=== PATIENT | male | born 1960 | race Caucasian/White ===

== ENCOUNTER 2020-05-14 10:03 | Observation (INO) | payer OTHER ==
--- NOTE | 2020-05-14 11:50 | RAD REPORT ---
EXAM DESCRIPTION: CT - CTHCSPWOC - 05/14/2020 11:08 am CLINICAL HISTORY: fall/syncope, head and neck injury COMPARISON: No comparisons TECHNIQUE: Axial 5 mm thick images of the head were obtained. Axial 2 mm thick images of the cervic al spine were obtained with sagittal and coronal reconstruction images generated and reviewed. All CT scans are performed using dose optimization technique as appropriate and may include automated exposure control or mA/KV adjustment according to patient size. FINDINGS: No intracranial hemorrhage, mass, edema or acute intracranial finding. No suspicion for ac genie infarction. No extra-axial fluid collections. Mastoid air cells and paranasal sinuses are clear. No globe or orbit abnormality seen. Cervical bodies are normal in height. No subluxation abnormality. Straightening of the usual cervical lordosis could be from muscle spasm or positioning artifact with the examination. Minimal C5-6 and m ore moderate C6-7 disc space narrowing present. Endplate spurring changes are present. Patient has de generative change at the dens anterior arch C1 level. Prominent facet joint degenerative changes are present. There is mild bilateral foraminal stenosis at C2-3 and on the right at C3-4. Mild to moderat e left foraminal stenosis at C4-5 and bilateral moderate severity stenosis at C5-6. Posterior endplat e spurring at C6-7 is present. Canal is greater than 10 mm. Patient has moderate severity bilateral f oraminal stenosis at C6-7. No fracture or acute bony abnormality. Central canal detail is inherently limited. No paraspinal mass or hematoma. IMPRESSION: Negative CT head examination for acute or significant finding. Patient has advanced for age cervical spine degenerative change as detailed. There is no fracture or acute cervical spine finding seen. Central canal detail is inherently limited.
[2020-05-14 13:10] LABS: Basophils % 0.6 % (0-1.3); Hematocrit 50.3 % (39.6-49.0); MPV 8.8 fL (7.6-11.3); RBC Red Blood Cell Count 5.06 M/uL (4.33-5.43)
[2020-05-14 13:13] LABS: Protime INR 0.94
[2020-05-14 13:36] LABS: Albumin 4.2 g/dL (3.4-5.0); Bilirubin Direct 0.2 mg/dL (0-0.2); Bilirubin Total 0.8 mg/dL (0.2-1.0); CKMB Creatine Kinase MB 1.1 ng/mL (0.3-3.6); Magnesium 2.5 mg/dL (1.8-2.4); Potassium 4.2 mmol/L (3.5-5.1); Protein, Total 7.7 g/dL (6.4-8.2); Troponin (Emerg Dept Use Only) 0.1 ng/mL (0.0-0.045)
[2020-05-14 14:00] LABS: Urine Blood NEGATIVE (NEG); Urine Glucose NEGATIVE (NEG); Urine Protein NEGATIVE (NEG); Urine Specific Gravity 1.015 (1.005-1.030); Urine pH 5.5 (5.0-7.0)
--- NOTE | 2020-05-14 14:09 | ER ---
Nurse's Notes [facility] Name: Maxim Brown Age: 60 yrs Sex: Male : 1960 Arrival Date: 05/14/2020 Time: 10:16 Bed 28 Private MD: Cyndee Lowry K Diagnosis: Syncope and collapse;Abnormal results of cardiovascular function studies-elevated troponin Presentation: 05/14 10:45 Chief complaint: Patient states: "last time I was taking a bath and I woke up to my aa5 trying to wake me up". Pt reports laceration to chin. Pt states "I just feel really tired". Pt denies nausea/vomiting. Pt c/o frontal headache. 10:45 Coronavirus screen: Client denies travel out of the [place] in the last 14 days. At this aa5 time, the client does not indicate any symptoms associated with coronavirus-19. Ebola Screen: Patient negative for fever greater than or equal to 101.5 degrees Fahrenheit, and additional compatible Ebola Virus Disease symptoms. Initial Sepsis Screen: Does the patient meet any 2 criteria? No. Patient's initial sepsis screen is negative. Does the patient have a suspected source of infection? No. Patient's initial sepsis screen is negative. Risk Assessment: Do you want to hurt yourself or someone else? Patient reports no desire to harm self or others. Onset of symptoms was May 13, 2020. 10:45 Method Of Arrival: Ambulatory aa5 10:45 Acuity: CASTILLO 3 aa5 Triage Assessment: 10:45 General: Appears comfortable, Behavior is calm, cooperative. Pain: Complains of pain in aa5 forehead Pain currently is 2 out of 10 on a pain scale. Quality of pain is described as aching, Pain began 1 day ago. Is continuous. EENT: No signs and/or symptoms were reported regarding the EENT system. Neuro: Level of Consciousness is awake, alert, obeys commands, Oriented to person, place, time, situation. Cardiovascular: Heart tones S1 S2 present Patient's skin is warm and dry. Rhythm is regular. Respiratory: Airway is patent Respiratory effort is even, unlabored, Respiratory pattern is regular, symmetrical. GI: Abdomen is round non-distended, Bowel sounds present X 4 quads. Abd is soft and non tender X 4 quads. : No signs and/or symptoms were reported regarding the genitourinary system. Derm: Skin is pink, warm \\T\\ dry. Musculoskeletal: Range of motion: intact in all extremities. Historical: - Allergies: 10:53 coconut oil; aa5 - Home Meds: 10:53 Bystolic 5 mg oral tab once daily [Active]; losartan 50 mg oral tab 1 tab once daily aa5 [Active]; - PMHx: 10:53 Hypertension; aa5 - PSHx: 10:53 Tonsillectomy; aa5 - Immunization history:: Adult Immunizations unknown. - Social history:: Smoking status: Patient denies any tobacco usage or history of. Patient/guardian denies using alcohol, street drugs, The patient lives with family, with spouse. - Family history:: not pertinent, Father has/had sudden . Screenin:51 Abuse screen: Denies threats or abuse. Denies injuries from another. Nutritional iw screening: No deficits noted. Tuberculosis screening: No symptoms or risk factors identified. Fall Risk None identified. Assessment: 13:51 Reassessment: Patient appears in no apparent distress at this time. Patient and/or iw family updated on plan of care and expected duration. Pain level reassessed. Patient is alert, oriented x 3, equal unlabored respirations, skin warm/dry/pink. 14:43 Reassessment: Patient appears in no apparent distress at this time. Patient and/or ss family updated on plan of care and expected duration. Pain level reassessed. Patient is alert, oriented x 3, equal unlabored respirations, skin warm/dry/pink. Reassessment: Pt is aware of admission for further assessment and treatment. Awaiting room assignment. Call light remains within reach. Respiratory:. Vital Signs: 10:45 BP 119 / 71; Pulse 62; Resp 18 S; Temp 98.3(TE); Pulse Ox 97% on R/A; Weight 85.28 kg aa5 (R); Height 6 ft. 0 in. (182.88 cm) (R); Pain 2/10; 14:43 BP 129 / 88; Pulse 57; Resp 18; Pulse Ox 96% on R/A; Pain 0/10; ss 10:45 Body Mass Index 25.50 (85.28 kg, 182.88 cm) aa5 ED Course: 10:16 Patient arrived in ED. am4 10:17 Cyndee Lowry MD is Private Physician. am4 10:51 Arm band placed on. aa5 10:55 Triage completed. aa5 11:07 CT Head C Spine In Process Unspecified. EDMS 12:47 Zuleyma Santoro MD is Attending Physician. ma2 12:47 Patient has correct armband on for positive identification. Placed in gown. Bed in low aa5 position. Call light in reach. Side rails up X 1. 12:50 pvc monitor on. Pulse ox on. NIBP on. aa5 12:58 Initial lab(s) drawn, by me, sent to lab. EKG done, by ED staff, reviewed by Zuleyma Santoro MD. Inserted saline lock: 20 gauge in left antecubital area, using aseptic technique. Blood collected. 14:07 Zuleyma Orozco MD is Hospitalizing Provider. ma2 17:34 No provider procedures requiring assistance completed. Patient admitted, IV remains in iw place. Administered Medications: No medications were administered Point of Care Testing: Blood Glucose: 10:58 Blood Glucose: 141 mg/dL; aa5 Ranges: Outcome: 14:07 Decision to Hospitalize by Provider. ma2 17:34 Admitted to ER Hold. Please see [facility] for further documentation. iw 17:34 Condition: good 20:13 Patient left the ED. iw Signatures: Dispatcher [employer] EDMS Cinthia Barger RN RN Malini Carrion RN RN aa5 Breanne Blanco RN RN Zuleyma Santoro MD MD mi2 Vanda Ivan am4 Corrections: (The following items were deleted from the chart) 10:55 10:45 Chief complaint: Patient states: "last time I was taking a bath and I woke up to aa5 my trying to wake me up". Pt reports laceration to chin. Pt states "I just feel really tired". Pt denies nausea/vomiting. aa5 15:08 12:47 General: Appears comfortable, Behavior is calm, cooperative, aa5 aa5 15:08 12:47 Pain: Complains of pain in forehead Pain currently is 2 out of 10 on a pain aa5 scale. Quality of pain is described as aching, Pain began 1 day ago. Is continuous, aa5 15:08 12:47 EENT: No signs and/or symptoms were reported regarding the EENT system. aa5 aa5 15: 12:47 Neuro: Level of Consciousness is awake, alert, obeys commands, Oriented to aa5 person, place, time, situation, aa5 : 12:47 Cardiovascular: Heart tones S1 S2 present Patient's skin is warm and dry. Rhythm aa5 is regular aa5 15: 12:47 Respiratory: Airway is patent Respiratory effort is even, unlabored, Respiratory aa5 pattern is regular, symmetrical, aa5 15: 12:47 GI: Abdomen is round non-distended, Bowel sounds present X 4 quads. Abd is soft aa5 and non tender X 4 quads. aa5 15: 12:47 : No signs and/or symptoms were reported regarding the genitourinary system. aa5aa5 15: 12:47 Derm: Skin is pink, warm \\T\\ dry. aa5 aa5 15: 12:47 Musculoskeletal: Range of motion: intact in all extremities, aa5 aa5 19:05 12:47 Malini Carrion, RN is Primary Nurse. aa aa
--- NOTE | 2020-05-14 14:09 | EDPHYS ---
Physician Documentation [facility] Name: Maxim Brown Age: 60 yrs Sex: Male : 1960 Arrival Date: 05/14/2020 Time: 10:16 Bed 28 Private MD: Cyndee Lowry K ED Physician Zuleyma Santoro HPI: 05/14 13:40 This 60 yrs old Male presents to ER via Ambulatory with complaints of Passed ma2 Out Prior To Arrival. 13:40 The patient has experienced syncope, collapsed. Onset: The symptoms/episode ma2 began/occurred suddenly, 2 day(s) ago. Associated signs and symptoms: Pertinent negatives: ataxia, combativeness, confusion, diarrhea. The patient has not experienced similar symptoms in the past. Historical: - Allergies: 10:53 coconut oil; aa5 - Home Meds: 10:53 Bystolic 5 mg oral tab once daily [Active]; losartan 50 mg oral tab 1 tab once daily aa5 [Active]; - PMHx: 10:53 Hypertension; aa5 - PSHx: 10:53 Tonsillectomy; aa5 - Immunization history:: Adult Immunizations unknown. - Social history:: Smoking status: Patient denies any tobacco usage or history of. Patient/guardian denies using alcohol, street drugs, The patient lives with family, with spouse. - Family history:: not pertinent, Father has/had sudden . ROS: 13:40 Constitutional: Negative for fever, chills, and weight loss. ma2 13:40 All other systems are negative. Exam: 13:40 Constitutional: This is a well developed, well nourished patient who is awake, alert, ma2 and in no acute distress. Head/Face: Normocephalic, atraumatic. Eyes: Pupils equal round and reactive to light, extra-ocular motions intact. Lids and lashes normal. Conjunctiva and sclera are non-icteric and not injected. Cornea within normal limits. Periorbital areas with no swelling, redness, or edema. ENT: Nares patent. No nasal discharge, no septal abnormalities noted. Tympanic membranes are normal and external auditory canals are clear. Oropharynx with no redness, swelling, or masses, exudates, or evidence of obstruction, uvula midline. Mucous membranes moist. Neck: Trachea midline, no thyromegaly or masses palpated, and no cervical lymphadenopathy. Supple, full range of motion without nuchal rigidity, or vertebral point tenderness. No Meningismus. Chest/axilla: Normal chest wall appearance and motion. Nontender with no deformity. No lesions are appreciated. Cardiovascular: Regular rate and rhythm with a normal S1 and S2. No gallops, murmurs, or rubs. Normal PMI, no JVD. No pulse deficits. Respiratory: Lungs have equal breath sounds bilaterally, clear to auscultation and percussion. No rales, rhonchi or wheezes noted. No increased work of breathing, no retractions or nasal flaring. Abdomen/GI: Soft, non-tender, with normal bowel sounds. No distension or tympany. No guarding or rebound. No evidence of tenderness throughout. Neuro: Awake and alert, GCS 15, oriented to person, place, time, and situation. Cranial nerves II-XII grossly intact. Motor strength 5/5 in all extremities. Sensory grossly intact. Cerebellar exam normal. Normal gait. Psych: Awake, alert, with orientation to person, place and time. Behavior, mood, and affect are within normal limits. Vital Signs: 10:45 BP 119 / 71; Pulse 62; Resp 18 S; Temp 98.3(TE); Pulse Ox 97% on R/A; Weight 85.28 kg aa5 (R); Height 6 ft. 0 in. (182.88 cm) (R); Pain 2/10; 14:43 BP 129 / 88; Pulse 57; Resp 18; Pulse Ox 96% on R/A; Pain 0/10; ss 10:45 Body Mass Index 25.50 (85.28 kg, 182.88 cm) aa5 MDM: 12:47 Patient medically screened. ma2 13:40 Differential Diagnosis: cardiac arrhythmia, drug effect, emotional response, vasovagal ma2 episode. Data reviewed: vital signs, nurses notes. Counseling: I had a detailed discussion with the patient and/or guardian regarding: the historical points, exam findings, and any diagnostic results supporting the discharge/admit diagnosis, the presence of at least one elevated blood pressure reading (>120/80) during this emergency department visit, the need for further work-up and treatment in the hospital. ED course: troponin is 0.1, patient has no symptoms at this time, ekg with no brugada, long qt, ischemic changes or s1q3t3, patient never had pe or dvt and no clinical dvt or risk of dvt today . 05/14 11:11 Order name: Glucose, Ancillary Testing; Complete Time: 12:49 EDMS 05/14 12:50 Order name: Basic Metabolic Panel [facility] 05/14 12:50 Order name: CBC with Diff [facility] 05/14 12:50 Order name: Ckmb [facility] 05/14 12:50 Order name: CPK [facility] 05/14 12:50 Order name: Hepatic Function [facility] 05/14 12:50 Order name: Lipase [facility] 05/14 12:50 Order name: Magnesium [facility] 05/14 12:50 Order name: Protime (+inr) [facility] 05/14 12:50 Order name: Ptt, Activated [facility] 05/14 12:50 Order name: Troponin (emerg Dept Use Only) [facility] 05/14 13:12 Order name: CBC with Automated Diff; Complete Time: 13:35 EDMS 05/14 13:15 Order name: Protime (+INR); Complete Time: 13:35 EDMS 05/14 13:15 Order name: PTT, Activated Partial Thromb; Complete Time: 13:35 EDMS 05/14 13:36 Order name: Basic Metabolic Panel; Complete Time: 13:36 EDMS 05/14 13:36 Order name: Liver (Hepatic) Function; Complete Time: 13:36 EDMS 05/14 13:36 Order name: Creatine Phosphokinase; Complete Time: 13:36 EDMS 05/14 13:36 Order name: CKMB Creatine Kinase MB; Complete Time: 13:36 EDMS 05/14 13:36 Order name: Troponin (Emerg Dept Use Only); Complete Time: 13:36 EDMS 05/14 13:36 Order name: Magnesium; Complete Time: 13:36 EDMS 05/14 13:36 Order name: Lipase; Complete Time: 13:36 EDMS 05/14 13:42 Order name: Urine Dipstick--Ancillary (enter results) 05/14 14:01 Order name: Urine Dipstick-Ancillary; Complete Time: 14:09 EDMS 05/14 15:06 Order name: Basic Metabolic Panel [facility] 05/14 15:06 Order name: Basic Metabolic Panel [facility] 05/14 15:06 Order name: Lipid Profile [facility] 05/14 15:06 Order name: Lipid Profile [facility] 05/14 15:06 Order name: Troponin I [facility] 05/14 15:06 Order name: Troponin I [facility] 05/14 15:06 Order name: Troponin I [facility] 05/14 10:56 Order name: CT Head C Spine; Complete Time: 12:49 aa5 05/14 12:50 Order name: EKG; Complete Time: 12:51 [facility] 05/14 12:50 Order name: Cardiac monitoring; Complete Time: 13:02 [facility] 05/14 12:50 Order name: EKG - Nurse/Tech; Complete Time: 13:02 [facility] 05/14 12:50 Order name: IV Saline Lock; Complete Time: 13:02 [facility] 05/14 12:50 Order name: Labs collected and sent; Complete Time: 13:02 [facility] 05/14 12:50 Order name: NPO; Complete Time: 13:02 [facility] 05/14 12:50 Order name: O2 Per Protocol; Complete Time: 13:02 [facility] 05/14 12:50 Order name: O2 Sat Monitoring; Complete Time: 13:02 [facility] 05/14 12:50 Order name: Urine Dipstick-Ancillary (obtain specimen); Complete Time: 13:42 [facility] 05/14 15:06 Order name: CONS Physician Consult [facility] 05/14 15:06 Order name: Heart Healthy [facility] 05/14 15:06 Order name: Echo with Doppler [facility] 05/14 15:07 Order name: CBC with Automated Diff [facility] 05/14 15:07 Order name: CBC with Automated Diff [facility] 05/14 15:07 Order name: Carotid Artery Bilateral [facility] 05/14 16:34 Order name: CORONAVIRUS (COVID-19) : Document "Date of Symptom Onset" if Symptomatic. em1 05/14 17:05 Order name: CORONAVIRUS [facility] 05/14 17:59 Order name: SARS-COV-2 RT PCR [facility] Administered Medications: No medications were administered Point of Care Testing: Blood Glucose: 10:58 Blood Glucose: 141 mg/dL; aa5 Ranges: Critical Glucose Levels:Adult <50 mg/dl or >400 mg/dl <40 mg/dl or >180 mg/dl Disposition: 05/14/20 14:07 Hospitalization ordered by Zuleyma Orozco for Observation. Preliminary diagnosis are Syncope and collapse, Abnormal results of cardiovascular function studies - elevated troponin. - Bed requested for Telemetry/MedSurg (observation). - Status is Observation. iw - Condition is Stable. - Problem is new. - Symptoms are unchanged. Signatures: Dispatcher [employer] EDMS Cinthia Barger RN RN iw Malini Carrion, RN RN aa5 Pari Schultz RN RN tl1 Zuleyma Santoro MD MD ma2 Corrections: (The following items were deleted from the chart) 17:34 14:07 Hospitalization Ordered by Zuleyma Orozco MD for Observation. Preliminary iw diagnosis is Syncope and collapse; Abnormal results of cardiovascular function studies - elevated troponin. Bed requested for Telemetry/MedSurg (observation). Status is Observation. Condition is Stable. Problem is new. Symptoms are unchanged. ma2 19:20 17:34 05/14/2020 14:07 Hospitalization Ordered by Zuleyma Orozco MD for Observation. tl1 Preliminary diagnosis is Syncope and collapse; Abnormal results of cardiovascular function studies - elevated troponin. Bed requested for [facility] ER HOLD. Status is Observation. Condition is Stable. Problem is new. Symptoms are unchanged. iw 20:13 19:20 05/14/2020 14:07 Hospitalization Ordered by Zuleyma Orozco MD for Observation. iw Preliminary diagnosis is Syncope and collapse; Abnormal results of cardiovascular function studies - elevated troponin. Bed requested for Telemetry/MedSurg (observation). Status is Observation. Condition is Stable. Problem is new. Symptoms are unchanged. tl1
[2020-05-14] MEDS ORDERED: MORPHINE 4 MG/ML SYR IV PRN (15:03)
--- NOTE | 2020-05-14 16:30 | RAD REPORT ---
EXAM DESCRIPTION: USCarotid Artery Bilateral05/14/2020 4:22 pm CLINICAL HISTORY: syncope COMPARISON: None FINDINGS: The velocity of the right internal carotid artery equals 67 cm/sec. The right ICA/CCA rati o 1.1 The velocity of the left internal carotid artery equals 76 cm/sec. The left ICA/CCA ratio .8 Mild plaque is present within the carotid arteries. The vertebral arteries demonstrate antegrade flow IMPRESSION: Mild plaque within the carotid arteries without evidence of a hemodynamically significan t stenosis NASCET criteria used. Mild 0-49% stenosis Moderate 50-69% stenosis Severe 70-99% stenosis
[2020-05-14] MEDS: ACETAMINOPHEN 500 MG TAB PO PRN (18:45)
[2020-05-14] MEDS ORDERED: ACETAMINOPHEN 500 MG TAB ONE (18:46)
[2020-05-14] MEDS: ALPRAZOLAM 0.25 MG TABLET PO PRN (21:28)
[2020-05-14] MEDS: METOPROLOL TAR 25 MG TAB PO SCH (21:28)
[2020-05-14 22:00] VITALS: BMI 25.6
[2020-05-15 05:09] LABS: Absolute Lymphocytes (CBC) 1.8 K/uL (0.7-4.9); Basophils % 0.7 % (0-1.3); Hematocrit 45.8 % (39.6-49.0); Lymphocytes % 33.3 % (15.3-44.8); MPV 8.8 fL (7.6-11.3); RBC Red Blood Cell Count 4.71 M/uL (4.33-5.43)
[2020-05-15 05:33] LABS: BUN Blood Urea Nitrogen 20 mg/dL (7-18); Bicarbonate 24 mmol/L (21-32); Glucose Level 107 mg/dL (74-106); HDL Cholesterol 57 mg/dL (40-60); LDL Cholesterol, Calculated 123 (<130); Potassium 3.8 mmol/L (3.5-5.1); Sodium Level 140 mmol/L (136-145); Troponin I < 0.02 ng/mL (0.0-0.045)
[2020-05-15] MEDS ORDERED: REGADENOSON 0.4 MG/5 ML SYR IV ONE (08:10)
[2020-05-15] MEDS: METOPROLOL TAR 25 MG TAB PO SCH ×2 (08:28→21:22)
[2020-05-15] MEDS: ASPIRIN EC 81 MG TAB PO SCH (08:28)
[2020-05-15] MEDS: ENOXAPARIN 40 MG/0.4 ML SQ SCH (08:29)
--- NOTE | 2020-05-15 11:53 | RAD REPORT ---
EXAM DESCRIPTION: NM - Rest Stress Cardiac Imaging - 05/15/2020 10:33 am CLINICAL HISTORY: Chest pain. /syncope COMPARISON: None. TECHNIQUE: The patient was administered 10.1 mCi of Tc 99m Sestamibi prior to resting SPECT imaging of the heart. The patient was then administered 31.2 mCi of Tc 99m Sestamibi following exercise or ph armacologic stress. Multiplanar SPECT images were reviewed. FINDINGS: There is uniformity of radiotracer uptake involving the entire left ventricular myocardiu m on rest and stress images. The left ventricular ejection fraction equals 60% IMPRESSION: Negative for a myocardial perfusion defect
[2020-05-15] MEDS: ACETAMINOPHEN 500 MG TAB PO PRN (12:03)
--- NOTE | 2020-05-15 14:52 | RAD REPORT ---
EXAM DESCRIPTION: CT - Chest For Pe Angio - 05/15/2020 2:35 pm CLINICAL HISTORY: Chest pain. PE COMPARISON: No comparisons TECHNIQUE: CT angiogram of the pulmonary arteries was performed with MIP. All CT scans are performed using dose optimization technique as appropriate and may include automated exposure control or mA/KV adjustment according to patient size. FINDINGS: No evidence of pulmonary thromboembolism. No acute aortic finding demonstrated. The lungs are clear. No significant pericardial or pleural fluid. No concerning bony finding. IMPRESSION: No evidence of pulmonary thromboembolism. No acute lung findings.
[2020-05-15] MEDS: ALPRAZOLAM 0.25 MG TABLET PO PRN (21:22)
[2020-05-15 23:42] VITALS: O2SAT 95
--- NOTE | 2020-05-16 07:50 | EKG ---
Test Date: 2020-05-14 Test Time: 12:57:08 [employer] Cream Dipper: ELISHA MEASUREMENT RESULTS: Intervals: Rate: 56 WA: 148 QRSD: 82 QT: 412 QTc: 397 [place]: P: 64 WA: 148 QRS: 78 T: 34 INTERPRETIVE STATEMENTS: Sinus bradycardia Cannot rule out Anterior infarct, age undetermined Abnormal ECG No previous ECG available for comparison Electronically Signed On 05-16-20 07:49:17 [employer] by Lefty Salas
--- NOTE | 2020-05-16 08:50 | P.HP ---
Certification for Inpatient Patient admitted to: Observation With expected LOS: <2 Midnights Patient will require the following post-hospital care: None Practitioner: I am a practitioner with admitting privileges, knowledge of patient current condition, hospital course, and medical plan of care. Services: Services provided to patient in accordance with Admission requirements found in Title 42 Section 412.3 of the Code of Federal Regulations Patient History Date of Service: 05/14/20 Reason for admission: Syncope and collapse History of Present Illness: Patient is a 60-year-old gentleman who came to the hospital after having a syncopal event. Patient states he had gotten out of the shower and was feeling fine. He had no significant concerns or complaints. He was trying himself off with a towel. He had been walking into his bedroom when he suddenly collapsed. Patient came around a few seconds later according to his who was there after she heard him fall. He came around and he was brought into the hospital. At this time, plan is to admit the patient to the hospital. He does have a family history of multiple family members with cardiac disease and his father had a sudden cardiac arrest and in his early 70s. Cardiology consultation will be obtained as well. Monitor him on telemetry. Allergies No Known Allergies Allergy (Unverified 07/24/15 19:11) Home Medications: Losartan Potassium [Cozaar*] 50 mg PO DAILY 05/14/20 Nebivolol HCl [Bystolic*] 5 mg PO DAILY 05/14/20 - Past Medical/Surgical History -: Hypertension Past Surgical History: Patient denies surgical history - Family History Father Family History: Reviewed- Non-Contributory - Social History Smoking Status: Never smoker Alcohol use: No CD- Drugs: No Review of Systems 10-point ROS is otherwise unremarkable Physical Examination - Vital Signs Temperature: 98.1 F Blood Pressure: 106/65 Pulse: 62 Respirations: 20 Pulse Ox (%): 96 - Physical Exam General: Alert, In no apparent distress, Oriented x3 HEENT: Atraumatic, PERRLA, Mucous membr. moist/pink, EOMI, Sclerae nonicteric Neck: Supple, 2+ carotid pulse no bruit, No LAD, Without JVD or thyroid abnormality Respiratory: Diminished, Crackles/rales Cardiovascular: Regular rate/rhythm, Normal S1 S2, No murmurs Gastrointestinal: Normal bowel sounds, Soft and benign, Non-distended, No tenderness Musculoskeletal: No clubbing, No swelling, No tenderness Integumentary: No rashes Neurological: Sensation intact, Cranial nerves 3-12 intact Assessment & Plan - Problems (Diagnosis) (1) Syncope and collapse Current Visit: Yes Status: Acute (2) History of hypertension Current Visit: Yes Status: Acute - Plan 1. Serial troponins and EKG and monitor on telemetry 2. Cardiology consultation 3. Echocardiogram and stress test per Cardiology 4. Anti-platelet therapy, anti coagulation, beta-herrera, statin, and O2 as needed 5. IV morphine for pain 6. Nitro p.r.n. 7. CT with PE protocol Discharge Plan: Home Plan to discharge in: Greater than 2 days - Advance Directives Does patient have a Living Will: No Does patient have a Durable POA for Healthcare: No - Code Status/Comfort Care Code Status Assessed: Yes Code Status: Full Code Critical Care: No Time Spent Managing PTS Care (In Minutes): 45
--- NOTE | 2020-05-16 08:54 | TREADPHA ---
DX: SYNCOPE, FAMILTY HISTORY OF CARDIAC ARREST Date of Study: 05/15/2020 Ht: 6' 0 " Wt: 188 lb 14.4 oz Consulting Physician: RUDI MEDICATIONS: TYLENOL EXTRA STRENGTH, XANAX, ASPIRIN, LOVENOX, LOPRESSIR, MORPHINE SULFATE HISTORY: 60 YEAR OLD WITH CHEST PAIN, SYNCOPE. PHYSICIAL EXAMINATION: RESTING B.P.: 118/83 RESTING H.R.: 52 RESTING EKG: SINUS RHYTHM PROTOCOL: PHARMACOLOGIC EXERCISE TIME: 3:30 B.P. AT [place] STRESS: 114/76 IMPRESSION: LEXISCAN STRESS TEST PERFORMED. CARDIOLITE INJECTED PER PROTOCOL. SEE NUCLEAR MEDICINE REPORT. NO SUPRAVENTRICULAR TACHYCARDIA. NO VENTRICULAR TACHYCARDIA. NO ARRHYTHMIAS. RESPIRITORY EVEN NONLABORED. PATIENT TOLERATED WELL. RARE PREMATURE VENTICULAR COMPLEXES.
--- NOTE | 2020-05-16 08:55 | P.PN ---
Subjective Date of Service: 05/15/20 Stress test was negative. Cardiology recommends CT PE protocol along with getting echocardiogram prior to discharge as patient has had a significant family history of cardiac event. Continue with plan of care as mentioned above Review of Systems 10-point ROS is otherwise unremarkable Physical Examination - Vital Signs Temperature: 98.1 F Blood Pressure: 106/65 Pulse: 62 Respirations: 20 Pulse Ox (%): 96 - Physical Exam General: Alert, In no apparent distress, Oriented x3 Respiratory: Crackles/rales Cardiovascular: Regular rate/rhythm, Normal S1 S2, No murmurs Gastrointestinal: Normal bowel sounds, Soft and benign, Non-distended, No tenderness Musculoskeletal: No clubbing, No swelling, No tenderness Neurological: Sensation intact, Cranial nerves 3-12 intact - Studies Medications List Reviewed: Yes Assessment & Plan - Problems (Diagnosis) (1) Syncope and collapse Status: Acute (2) History of hypertension Status: Acute - Plan Continue with plan of care as mentioned below 1. Continue monitor on telemetry; event monitor at discharge 2. Cardiology consultation appreciated 3. Echocardiogram and CT PE protocol recommended 4. Anti-platelet therapy, beta-herrera, statin, and O2 as needed 5. IV morphine for pain 6. CT with PE protocol Discharge Plan: Home Plan to discharge in: 24 Hours - Advance Directives Does patient have a Living Will: No Does patient have a Durable POA for Healthcare: No - Code Status/Comfort Care Code Status: Full Code Critical Care: No Time Spent Managing PTS Care (In Minutes): 45
[2020-05-16] MEDS ORDERED: NEBIVOLOL HCL 5 MG TAB PO SCH (09:00)
[2020-05-16] MEDS: ASPIRIN EC 81 MG TAB PO SCH (09:00)
[2020-05-16] MEDS: ENOXAPARIN 40 MG/0.4 ML SQ SCH (10:04)
--- NOTE | 2020-05-16 11:22 | ECHO ---
HEIGHT: 6 ft 0 in WEIGHT: 188 lb 14.4 oz DATE OF STUDY: 05/14/[address]: Zuleyma Orozco MD 2-DIMENSIONAL: YES M.MODE: YES DOPPLER: YES COLOR FLOW: YES TDS: PORTABLE: DEFINITY: BUBBLE STUDY: DIAGNOSIS: SYNCOPE CARDIAC HISTORY: CATHERIZATION: NO SURGERY: NO PROSTHETIC VALVE: NO PACEMAKER: NO MEASUREMENTS (cm) DIASTOLIC (NORMALS) SYSTOLIC (NORMALS) IVSd 1.1 (0.6-1.2) LA Diam (1.9-4.0) LVEF 72% LVIDd 4.3 (3.5-5.7) LVIDs 2.5 (2.0-3.5) %FS 41% LVPWd 1.1 (0.6-1.2) Ao Diam 3.7 (2.0-3.7) 2 DIMENSIONAL ASSESSMENT: RIGHT ATRIUM: LEFT ATRIUM: RIGHT VENTRICLE: LEFT VENTRICLE: TRICUSPID VALVE: MITRAL VALVE: PULMONIC VALVE: AORTIC VALVE: PERICARDIAL EFFUSION: AORTIC ROOT: LEFT VENTRICULAR WALL MOTION: DOPPLER/COLOR FLOW: COMMENTS: NORMAL 2-DIMENSIONAL ECHOCARDIOGRAM WITH DOPPLER. NO WALL MOTION ABNORMALITY. NO EFFUSION. TECHNOLOGIST: LAURITA ALVARENGA
[2020-05-21 01:53] VITALS: BP 106/65; TEMP 98.1
--- NOTE | 2020-05-21 01:54 | P.DS ---
Discharge Date: 05/16/20 Disposition: ROUTINE DISCHARGE Discharge Condition: GOOD Reason for Admission: Syncope and collapse - Problems (1) Syncope and collapse Status: Acute (2) History of hypertension Status: Acute Brief History of Present Illness: Patient is a 60-year-old gentleman who came to the hospital after having a syncopal event. Patient states he had gotten out of the shower and was feeling fine. He had no significant concerns or complaints. He was trying himself off with a towel. He had been walking into his bedroom when he suddenly collapsed. Patient came around a few seconds later according to his who was there after she heard him fall. He came around and he was brought into the hospital. At this time, plan is to admit the patient to the hospital. He does have a family history of multiple family members with cardiac disease and his father had a sudden cardiac arrest and in his early 70s. Cardiology consultation will be obtained as well. Monitor him on telemetry. Hospital Course: Patient did well during her hospital stay. Stress test and echocardiogram were unremarkable. At the time, patient is stable for discharge home with outpatient follow up. Vital Signs/Physical Exam: Temp Pulse Resp BP Pulse Ox 98.1 F 62 20 106/65 96 05/21/20 01:53 05/21/20 01:53 05/21/20 01:53 05/21/20 01:53 05/21/20 01:53 General: Alert, In no apparent distress, Oriented x3 Laboratory Data at Discharge: WBC 5.50 K/uL (4.3-10.9) D 05/15/20 04:22 Hgb 15.9 g/dL (13.6-17.9) 05/15/20 04:22 Hct 45.8 % (39.6-49.0) 05/15/20 04:22 Plt Count 154 K/uL (152-406) 05/15/20 04:22 PT 11.1 SECONDS (9.5-12.5) 05/14/20 12:58 INR 0.94 05/14/20 12:58 APTT 29.5 SECONDS (24.3-36.9) 05/14/20 12:58 Sodium 140 mmol/L (136-145) 05/15/20 04:22 Potassium 3.8 mmol/L (3.5-5.1) 05/15/20 04:22 BUN 20 mg/dL (7-18) H 05/15/20 04:22 Creatinine 1.03 mg/dL (0.55-1.3) 05/15/20 04:22 Glucose 107 mg/dL (74-106) H 05/15/20 04:22 Magnesium 2.5 mg/dL (1.8-2.4) H 05/14/20 12:58 Total Bilirubin 0.8 mg/dL (0.2-1.0) 05/14/20 12:58 AST 19 U/L (15-37) 05/14/20 12:58 ALT 29 U/L (12-78) 05/14/20 12:58 Alkaline Phosphatase 61 U/L (45-117) 05/14/20 12:58 Troponin I < 0.02 ng/mL (0.0-0.045) 05/15/20 04:22 Triglycerides Cancelled 05/15/20 06:00 Cholesterol Cancelled 05/15/20 06:00 HDL Cholesterol Cancelled 05/15/20 06:00 Cholesterol/HDL Ratio Cancelled 05/15/20 06:00 Lipase 131 U/L (73-393) 05/14/20 12:58 Home Medications: Nebivolol HCl [Bystolic*] 5 mg PO DAILY 05/14/20 Diet: AHA Activity: Fall precautions Followup: Lefty Salas MD [ACTIVE - CAN ADMIT] - 1-2 Weeks (Follow up in office in 1-2 weeks. Call to schedule an appointment. ) Cyndee Lowry MD [Primary Care Provider] - 1-2 Weeks (Follow up in office in 1-2 weeks. Call to schedule an appointment. ) Time spent managing pt's care (in minutes): 35
== END 2020-05-16 13:19 | disposition home or self-care (01) ==
LOC: ER 10:03 → ERHOLD 15:03 → 2ND 19:48
PROVIDERS: ADMIT Hospitalist; ATTEND Hospitalist
DX: R55 Syncope and collapse (principal); I10 Essential (primary) hypertension; R77.8 Other specified abnormalities of plasma proteins; Z20.822 Contact with and (suspected) exposure to COVID-19; Z82.49 Family history of ischemic heart disease and other diseases of the circulatory system
CPT/HCPCS: 93005; 93017; 93306; 85025 ×2; 80048 ×2; 36415; 83735; 82550; 85610; 80061; 82947; 80076; 85730; 81003; 84484 ×3; 82553; 83690; 70450; 72125; 71275; 93880; 78452; 99285; U0003; Q9967; J1650; J2785; A9500

== ENCOUNTER 2021-04-02 21:11 | Observation (INO) | payer OTHER ==
--- OUTSIDE RECORDS SUMMARY | 2021-04-02 21:15 | XMS REPORT | Continuity of Care Document ---
:1960 Author Organization [facility] t Address [address] [place] [address] Care Team Providers Name Role Phone Gege VERGARA Attending Clinician Unavailable Pcp, Does Not Have A Attending Clinician Anene RACKING MACHINE OPERATOR Attending Clinician Pob1, Care Clinic Attending Clinician Unavailable ANENE Attending Clinician Unavailable Payers Payer Name Policy Type Policy Number Effective Date Expiration Date S kim [employer] CHOICE POS [id number] 2018 00:00:00 II Problems Condition Condition Condition Status Onset Resolution Last Treating Co mments Source Name Details Category Date Date Treatment Clinician Date No known No known Disease Unive rs active active ity of problems problems [facility] Allergies, Adverse Reactions, Alerts Allergy Allergy Status Severity Reaction(s) Onset Inactive Treating Comm ents Source Name Type Date Date Clinician No Known DA Active U 2017-04 [facility] Allergie 1-16 [place] s 00:00: d [facility] No Known DA Active U 2004- [facility] Contrast - [place] Allergie 00:00: d [facility] No Known DA Active U 2004- [facility] Drug - [place] Allergie 00:00: d [facility] No Known DA Active U 2004-0 [facility] Food - [place] Allergie 00:00: d [facility] No Known DA Active U 2004-0 [facility] Other - [place] Allergie 00:00: d [facility] NO KNOWN Drug Active Univers ALLERGIE Class ity of S [facility] Social History Social Habit Start Date Stop Date Quantity Comments Source Sex Assigned At [facility] [place] [facility] Smoking Status Start Date Stop Date Source Never smoker [facility] Medications Ordered Filled Start Stop Current Ordering Indication Dosage Frequency Signature Comments Components Source Medication Medication Date Date Medication? Clinician (SIG) Name Name albuterol Yes [id number] 2{puff} Inhale 2 Univers (VENTOLIN 4-29 Puffs ity of HFA) 90 00:00: every 6 [place] mcg/actuati 00 (six) Medical on inhaler hours as Branc h needed for Shortness of Breath or Chest tightness. losartan 50 0 Yes losartan Un [place] mg tablet 4-07 50 mg ity of 13:50: tablet [place] 15 [facility] Branch nebivolol 0 Yes Bystolic Univ ers (BYSTOLIC) 4-07 10 mg ity of 10 mg 13:50: tablet [place] tablet 15 Medical Branch losartan 50 0 Yes losartan Un [place] mg tablet -07 50 mg ity of 13:50: tablet [place] 15 [facility] nebivolol 2019-0 Yes Bystolic Univ ers (BYSTOLIC) 4-07 10 mg ity of 10 mg 13:50: tablet [place] tablet 15 Medical Branch losartan 50 2019-0 Yes losartan Un [place] mg tablet -07 50 mg ity of 13:50: tablet [place] 15 [facility] nebivolol 2019-0 Yes Bystolic Univ ers (BYSTOLIC) 4-07 10 mg ity of 10 mg 13:50: tablet [place] tablet 15 Medical Branch albuterol 2020- No [id number] 2{puff} Inhale 2 Univers (VENTOLIN 4-07 05-08 Puffs ity of HFA) 90 00:00: 04:59 every 6 [place] mcg/actuati 00 :00 (six) Medical on inhaler hours as Branc h needed for Shortness of Breath or Chest tightness for up to 30 days. albuterol 2020- No [id number] 2{puff} Inhale 2 Univers (VENTOLIN 4-07 05-08 Puffs ity of HFA) 90 00:00: 04:59 every 6 [place] mcg/actuati 00 :00 (six) Medical on inhaler hours as Branc h needed for Shortness of Breath or Chest tightness for up to 30 days. acetaminoph 2019- 2020- No [id number] 650mg Take 1 Univers en (TYLENOL 4-07 04-29 tablet by it y of ARTHRITIS 00:00: 04:59 mouth [place] PAIN) 650 00 :00 every 8 Medical mg CR (eight) Branch tablet hours as needed for Pain for up to 21 days. acetaminoph 2020- No [id number] 650mg Take 1 Univers en (TYLENOL 07-23 tablet by it y of ARTHRITIS 00:00: 04:59 mouth [place] PAIN) 650 00 :00 every 8 Medical mg CR (eight) Branch tablet hours as needed for Pain for up to 21 days. albuterol 2020- No [id number] 2{puff} Inhale 2 Univers (VENTOLIN 07-23 Puffs ity of HFA) 90 00:00: 00:00 every 6 [place] mcg/actuati 00 :00 (six) Medical on inhaler hours as Branc h needed for Shortness of Breath or Chest tightness for up to 30 days. benzonatate 2020- No [id number] 100mg Take 1 Univers (TESSALON 07-23 capsule by Kurt) 100 00:00: 04:59 mouth 3 [place] mg capsule 00 :00 (three) Medica l times Branch daily for 14 days. benzonatate 2020- No [id number] 100mg Take 1 Univers (TESSALON 07-23 capsule by Kurt) 100 00:00: 04:59 mouth 3 [place] mg capsule 00 :00 (three) Medica l times Branch daily for 14 days. ibuprofen Yes TAKE 1 Univer s 800 mg 3-10 TABLET BY ity of tablet 00:00: MOUTH [place] 00 THREE Medical TIMES A Branch DAY ibuprofen 0 Yes TAKE 1 Univer s 800 mg 3-10 TABLET BY ity of tablet 00:00: MOUTH [place] 00 THREE Medical TIMES A Branch DAY ibuprofen 0 Yes TAKE 1 Univer s 800 mg 3-10 TABLET BY ity of tablet 00:00: MOUTH [place] 00 THREE Medical TIMES A Branch DAY Vital Signs Vital Name Observation Time Observation Value Comments Source Systolic blood 2019-07-24 13:52:00 132 mm[Hg] Univer sity of pressure [facility] Diastolic blood 2019-07-24 13:52:00 89 mm[Hg] Unive rsity of pressure [facility] Heart rate 2019-07-24 13:48:00 69 /min Universi ty [facility] [place] Body temperature 2019-07-24 13:48:00 36.89 Gaby [facility] Respiratory rate 2019-07-24 13:48:00 19 /min [facility] Body height 2019-07-24 13:48:00 182.9 cm Universi ty [facility] [place] Body weight 2019-07-24 13:48:00 85.276 kg Universi ty [facility] [place] BMI 2019-07-24 13:48:00 25.50 kg/m2 Universi ty [facility] [place] Oxygen saturation in 2019-07-24 13:48:00 99 /min [facility] Arterial blood by [facility] Pulse oximetry Branch Procedures This patient has no known procedures. Encounters Start End Encounter Admission Attending Care Care Encounter Source Date/Time Date/Time Type Type Clinicians Facility Department ID 2020-07-28 2020-07-28 Outpatient Smooth [facility] [id number] Univers 13:10:00 13:10:00 WHITNEY ity [facility] [place] 2020-07-07 2020-07-07 [facility] [id number] Univers 13:10:00 13:10:00 WHITNEY ity [facility] [place] 2019-08-15 2019-08-15 Refill Pcp, [facility] [id number] Univers 00:00:00 00:00:00 Patient Yair [id number] i ty of Does Not [place] [id number] [place] as Have A Professio [phone] [place] [id number] Branch Building 2019-07-25 2019-07-25 Genie Patterson [facility] [id number] Univers 00:00:00 00:00:00 [facility] [id number] it y of [place] [id number] [place] as Professio [phone] [address] 2019-07-24 2019-07-24 Urgent Pob1, Acute Care Clinic [facility] [id number] Univers 08:15:25 08:35:25 Care [facility] [id number] ity of [place] [id number] [place] as Profjerichoio [phone] [address] 2019-07-24 2019-07-24 Outpatient R [facility] [id number] Univers 08:20:00 08:20:00 CARMELA tan of [facility] Results This patient has no known results.
[2021-04-02 23:04] LABS: Absolute Lymphocytes (CBC) 1.1 K/uL (0.7-4.9); Basophils % 0.5 % (0-1.3); Hematocrit 44.5 % (39.6-49.0); Lymphocytes % 13.3 % (15.3-44.8); MPV 8.5 fL (7.6-11.3); RBC Red Blood Cell Count 4.49 M/uL (4.33-5.43)
[2021-04-02 23:11] LABS: Protime INR 1.01
[2021-04-02 23:24] LABS: ALT/SGPT 24 U/L (12-78); AST/SGOT 11 U/L (15-37); Albumin 3.7 g/dL (3.4-5.0); Alkaline Phosphatase 57 U/L (45-117); BUN Blood Urea Nitrogen 14 mg/dL (7-18); Bicarbonate 24 mmol/L (21-32); Bilirubin Direct 0.1 mg/dL (0-0.2); Bilirubin Total 0.6 mg/dL (0.2-1.0); Glucose Level 126 mg/dL (74-106); Magnesium 2.2 mg/dL (1.8-2.4); NT PRO-BNP 274 pg/mL (<125); Potassium 4.2 mmol/L (3.5-5.1); Protein, Total 7.7 g/dL (6.4-8.2); Sodium Level 136 mmol/L (136-145); Troponin (Emerg Dept Use Only) < 0.02 ng/mL (0.0-0.045)
[2021-04-03] MEDS ORDERED: ENOXAPARIN 80 MG/0.8 ML SQ ONE (00:44)
--- NOTE | 2021-04-03 01:03 | ER ---
Nurse's Notes [facility] Name: Maxim Brown Age: 61 yrs Sex: Male : 1960 Arrival Date: 04/02/2021 Time: 21:13 Bed 17 Private MD: Diagnosis: Other pulmonary embolism without acute cor pulmonale Presentation: 04/02 21:26 Chief complaint: Patient states: rotator cuff sx x [address] Zavala; difficulty vg1 breathing has increased since sx. Denies chest pain. Coronavirus screen: Vaccine status: Patient reports receiving the 2nd dose of the covid vaccine. Client denies travel out of the [place] in the last 14 days. Ebola Screen: Patient negative for fever greater than or equal to 101.5 degrees Fahrenheit, and additional compatible Ebola Virus Disease symptoms. Initial Sepsis Screen: Does the patient meet any 2 criteria? No. Patient's initial sepsis screen is negative. Does the patient have a suspected source of infection? No. Patient's initial sepsis screen is negative. Risk Assessment: Do you want to hurt yourself or someone else? Patient reports no desire to harm self or others. Onset of symptoms was April 02, 2021. 21:26 Method Of Arrival: Ambulatory vg1 21:26 Acuity: CASTILLO 3 vg1 Triage Assessment: 21:31 General: Appears in no apparent distress. uncomfortable, Behavior is calm, cooperative. vg1 Pain: Complains of pain in Right side of rib. Respiratory: Reports pain with cough pain with respiration Onset: The symptoms/episode began/occurred x 1 week, the patient has moderate shortness of breath. Historical: - Allergies: 21:31 No Known Allergies; vg1 - Home Meds: 21:31 Bystolic 5 mg Oral tab once daily for Hypertension [Active]; vg1 - PMHx: 21:31 Hypertension; vg1 - PSHx: 21:31 Rotator Cuff-Right and Left; vg1 - Immunization history:: Client reports receiving the 2nd dose of the Covid vaccine. - Social history:: Smoking status: Patient denies any tobacco usage or history of. Screenin:38 Abuse screen: Denies threats or abuse. Denies injuries from another. Nutritional jh5 screening: No deficits noted. Tuberculosis screening: No symptoms or risk factors identified. Fall Risk None identified. Assessment: 21:38 Cardiovascular: Capillary refill < 3 seconds Patient's skin is warm and dry. 5 Respiratory: Airway is patent Respiratory effort is even, unlabored, Respiratory pattern is regular, symmetrical. 04/03 01:57 Cardiovascular: Rhythm is sinus rhythm. sm5 01:57 Respiratory: Breath sounds are clear. 5 Vital Signs: 04/02 21:26 BP 112 / 77; Pulse 82; Resp 20; Temp 99.0(O); Pulse Ox 94% ; Weight 86.18 kg; Height 6 vg1 ft. 0 in. (182.88 cm); Pain 7/10; 22:00 BP 127 / 91; Pulse 65; Resp 20; Pulse Ox 93% ; sm5 04/03 00:00 BP 129 / 86; Pulse 65; Resp 21; Pulse Ox 94% on R/A; sm5 01:00 BP 122 / 85; Pulse 62; Resp 22; Pulse Ox 93% ; sm5 04/02 21:26 Body Mass Index 25.77 (86.18 kg, 182.88 cm) vg1 ED Course: 04/02 21:13 Patient arrived in ED. kc5 21:31 Triage completed. vg1 21:31 Arm band placed on. vg1 21:35 Talia Maldonado, RN is Primary Nurse. jh5 21:38 Patient has correct armband on for positive identification. Call light in reach. Side 5 rails up X 1. 21:40 Shayan Lucas MD is Attending Physician. sp3 23:57 CT Chest For PE Angio In Process Unspecified. EDMS 04/03 00:12 US Extremity Venous Unilateral Ltd In Process Unspecified. EDMS 01:02 Adithya Ayoub MD is Hospitalizing Provider. sp3 01:57 No provider procedures requiring assistance completed. Inserted saline lock: 20 gauge sm5 in left antecubital area, using aseptic technique. 02:28 Patient admitted, IV remains in place. 5 Administered Medications: 00:51 Drug: Lovenox (enoxaparin) 1 mg/kg Route: Sub-Q; Site: left lower abdomen; sm5 01:35 Drug: Dilaudid (HYDROmorphone) 1 mg Route: IVP; Site: left antecubital; sm5 01:35 Drug: Zofran (Ondansetron) 4 mg Route: IVP; Site: left antecubital; 5 Outcome: 01:02 Decision to Hospitalize by Provider. sp3 02:28 Admitted to Med/surg accompanied by tech, via wheelchair, with chart. 5 02:28 Condition: good 02:28 Instructed on the need for admit. 02:30 Patient left the ED. 5 Signatures: Dispatcher [employer] EDEna Melo RN RN vg1 Shayan Lucas MD MD sp3 Talia Maldonado RN RN 5 Radhika Sadler Gabrielle Sims RN RN sm5 Corrections: (The following items were deleted from the chart) 04/02 21:32 21:31 Allergies: coconut oil; vg1 vg1 21:32 21:31 Home Meds: losartan 50 mg Oral tab 1 tab once daily; vg1 vg1 21:32 21:31 Home Meds: other unknown BP medication; vg1 vg1
--- NOTE | 2021-04-03 01:03 | EDPHYS ---
Physician Documentation [facility] Name: Maxim Brown Age: 61 yrs Sex: Male : 1960 Arrival Date: 04/02/2021 Time: 21:13 Bed 17 Private MD: ED Physician Shayan Lucas HPI: 04/02 23:08 This 61 yrs old Male presents to ER via Ambulatory with complaints of Breathing sp3 Difficulty, Fever, Post Surgical Pain. 23:08 61-year-old male with history of hypertension who had right shoulder surgery Dr. lisa Zavala 7 days ago presents to the ED for right-sided chest pain radiating around to the back and difficulty breathing. Patient contacted Dr. Zavala who advised him to come to the ED to assess for pulmonary embolism. Pain has been occurring for the last 24 hours and is worse when he moves. Patient's been using incentive spirometer without difficulty attending good volumes. Patient reports no trauma although he did start physical therapy today. On review of systems, patient denies headache, neck pain, abdominal pain, nausea, vomiting, diarrhea, wound drainage, neuro symptoms, rash, syncope, near syncope, or any other findings.. Historical: - Allergies: 21:31 No Known Allergies; vg1 - Home Meds: 21:31 Bystolic 5 mg Oral tab once daily for Hypertension [Active]; vg1 - PMHx: 21:31 Hypertension; vg1 - PSHx: 21:31 Rotator Cuff-Right and Left; vg1 - Immunization history:: Client reports receiving the 2nd dose of the Covid vaccine. - Social history:: Smoking status: Patient denies any tobacco usage or history of. ROS: 23:09 Constitutional: Negative for fever, chills, and weight loss, Eyes: Negative for injury, sp3 pain, redness, and discharge, ENT: Negative for injury, pain, and discharge, Neck: Negative for injury, pain, and swelling, Abdomen/GI: Negative for abdominal pain, nausea, vomiting, diarrhea, and constipation, Back: Negative for injury and pain, MS/Extremity: Negative for injury and deformity, Skin: Negative for injury, rash, and discoloration, Neuro: Negative for headache, weakness, numbness, tingling, and seizure, Psych: Negative for depression, anxiety, suicide ideation, homicidal ideation, and hallucinations, Allergy/Immunology: Negative for hives, rash, and allergies. 23:09 All other systems are negative. Exam: 23:10 Constitutional: This is a well developed, well nourished patient who is awake, alert, sp3 and in no acute distress. Head/Face: Normocephalic, atraumatic. Eyes: Pupils equal round and reactive to light, extra-ocular motions intact. Lids and lashes normal. Conjunctiva and sclera are non-icteric and not injected. Cornea within normal limits. Periorbital areas with no swelling, redness, or edema. ENT: Nares patent. No nasal discharge, no septal abnormalities noted. External auditory canals are clear. Oropharynx with no redness, swelling, or masses, exudates, or evidence of obstruction, uvula midline. Mucous membranes moist. Neck: Trachea midline, no thyromegaly or masses palpated, and no cervical lymphadenopathy. Supple, full range of motion without nuchal rigidity, or vertebral point tenderness. No Meningismus. Chest/axilla: Normal chest wall appearance and motion. Nontender with no deformity. No lesions are appreciated. Cardiovascular: Regular rate and rhythm with a normal S1 and S2. No gallops, murmurs, or rubs. Normal PMI, no JVD. No pulse deficits. Respiratory: Lungs have equal breath sounds bilaterally, clear to auscultation and percussion. No rales, rhonchi or wheezes noted. No increased work of breathing, no retractions or nasal flaring. Abdomen/GI: Soft, non-tender, with normal bowel sounds. No distension or tympany. No guarding or rebound. No evidence of tenderness throughout. Back: No spinal tenderness. No costovertebral tenderness. Full range of motion. Neuro: Awake and alert, GCS 15, oriented to person, place, time, and situation. Cranial nerves II-XII grossly intact. Motor strength 5/5 in all extremities. Sensory grossly intact. Cerebellar exam normal. Normal gait. Psych: Awake, alert, with orientation to person, place and time. Behavior, mood, and affect are within normal limits. 23:10 Musculoskeletal/extremity: Surgical site without drainage. Right upper extremity was not taken out of patient sling and immobilizer.. 23:11 ECG was reviewed by the Attending Physician. EKG demonstrates normal sinus rhythm at 65 sp3 bpm with normal intervals, normal QRS, normal axis, J-point elevation in V2 V3 and nonspecific ST/T changes including inverted T wave in lead III isolated but overall showing no evidence of acute or subacute ischemia. Vital Signs: 21:26 BP 112 / 77; Pulse 82; Resp 20; Temp 99.0(O); Pulse Ox 94% ; Weight 86.18 kg; Height 6 vg1 ft. 0 in. (182.88 cm); Pain 7/10; 22:00 BP 127 / 91; Pulse 65; Resp 20; Pulse Ox 93% ; 5 04/03 00:00 BP 129 / 86; Pulse 65; Resp 21; Pulse Ox 94% on R/A; [facility] 01:00 BP 122 / 85; Pulse 62; Resp 22; Pulse Ox 93% ; [facility] 04/02 21:26 Body Mass Index 25.77 (86.18 kg, 182.88 cm) vg1 MDM: 04/02 22:11 Patient medically screened. [facility] 23:10 Data reviewed: vital signs, nurses notes. ED course: 61-year-old male postop day 8 from sp3 shoulder surgery here for shortness of breath and right-sided chest pain. Differential diagnosis includes pulmonary embolism, pleuritic chest pain/inflammation, pneumothorax, pneumonia, COVID-19, ACS, or other thoracic process. Will obtain CT scan of the chest, laboratory values, EKG. Disposition based on work-up and patient course.. 04/03 01:04 ED course: Will put patient in observation secondary to him needing Lovenox and to 3 arrange logistics for outpatient continuance with either Xarelto or Eliquis. Will consult with pharmacist and patient's insurance plan to decide. Patient will also be admitted for pain control.. 04/02 22:11 Order name: Basic Metabolic Panel [facility] 04/02 22:11 Order name: CBC with Diff; Complete Time: 00:13 [facility] 04/02 22:11 Order name: LFT's; Complete Time: 00:13 [facility] 04/02 22:11 Order name: Magnesium; Complete Time: 00:13 [facility] 04/02 22:11 Order name: NT PRO-BNP; Complete Time: 00:13 [facility] 04/02 22:11 Order name: PT-INR; Complete Time: 00:13 [facility] 04/02 22:11 Order name: Troponin (emerg Dept Use Only); Complete Time: 00:13 sp3 04/02 22:11 Order name: CT Chest For PE Angio sp3 04/02 22:18 Order name: US Extremity Venous Unilateral Ltd sp3 04/02 22:19 Order name: COVID-19 SARS RT PCR (Document "Date of Onset" if Symptomatic); Complete cs9 Time: 00:13 04/02 22:37 Order name: Basic Metabolic Panel; Complete Time: 00:13 EDMS 04/02 22:11 Order name: EKG; Complete Time: 22:38 sp3 04/02 22:11 Order name: Cardiac monitoring; Complete Time: 22:53 sp3 04/02 22:11 Order name: EKG - Nurse/Tech; Complete Time: 22:53 sp3 04/02 22:11 Order name: IV Saline Lock; Complete Time: 22:53 sp3 04/02 22:11 Order name: Labs collected and sent; Complete Time: 22:53 sp3 04/02 22:11 Order name: O2 Per Protocol; Complete Time: 22:16 sp3 04/02 22:11 Order name: O2 Sat Monitoring; Complete Time: 22:16 sp3 Administered Medications: 00:51 Drug: Lovenox (enoxaparin) 1 mg/kg Route: Sub-Q; Site: left lower abdomen; sm5 01:35 Drug: Dilaudid (HYDROmorphone) 1 mg Route: IVP; Site: left antecubital; sm5 01:35 Drug: Zofran (Ondansetron) 4 mg Route: IVP; Site: left antecubital; sm5 Disposition Summary: 04/03/21 01:02 Hospitalization Ordered Hospitalization Status: Observation sp3 Provider: Adithya Ayoub sp3 Location: Telemetry/MedSurg (observation) sp3 Condition: Stable sp3 Problem: new sp3 Symptoms: are unchanged sp3 Bed/Room Type: Standard sp3 Room Assignment: 230(04/03/21 01:23) Diagnosis - Other pulmonary embolism without acute cor pulmonale sp3 Forms: - Medication Reconciliation Form sp3 - SBAR form sp3 Signatures: Dispatcher [employer] EDMS Dania Underwood RN RN mw Garcia, Victoria RN RN 1 Shayan Lucas MD MD sp3 [place], Gabrielle, RN RN sm5 Corrections: (The following items were deleted from the chart) 04/02 21:32 21:31 Allergies: coconut oil; vg1 vg1 21:31 Home Meds: losartan 50 mg Oral tab 1 tab once daily; vg1 vg1 21:31 Home Meds: other unknown BP medication; vg1 vg1 04/03 01:23 01:02 sp3 arya
[2021-04-03] MEDS ORDERED: HYDROMORPHONE HCL 1 MG/ML INJ ONE (01:31)
[2021-04-03] MEDS ORDERED: ONDANSETRON 4 MG/2 ML VIAL ONE (01:31)
--- NOTE | 2021-04-03 01:57 | P.HP ---
Certification for Inpatient Patient admitted to: Inpatient With expected LOS: <2 Midnights Patient will require the following post-hospital care: None Practitioner: I am a practitioner with admitting privileges, knowledge of patient current condition, hospital course, and medical plan of care. Services: Services provided to patient in accordance with Admission requirements found in Title 42 Section 412.3 of the Code of Federal Regulations Patient History Date of Service: 04/03/21 Reason for admission: post op PE History of Present Illness: Mr. Brown is a 61 yo M with HTN and s/p right rotator cuff repair on 03/26 who presents with 1 day of R sided chest pain radiating to the back and SOB. He says he was initially able to max out on incentive spirometer, but today he had a lot of difficulty with it. He started physical therapy today as well, and had a lot of pain. He also reports ROSAS, palpitations, cough, fever, leg cramping, nausea, diaphoresis and dizziness. He called his surgeon who told him to go to the ED to rule out pulmonary embolism. CTPE revealed pulmonary embolism. Allergies No Known Allergies Allergy (Unverified 07/24/15 19:11) Home Medications: Nebivolol HCl [Bystolic*] 5 mg PO DAILY 05/14/20 - Past Medical/Surgical History -: Hypertension -: r rotator cuff -: l rotator cuff -: carpal tunnel repair -: trigger thumb repair -: tonsillectomy - Family History Family History: Reviewed- Non-Contributory - Social History Smoking Status: Never smoker Alcohol use: No CD- Drugs: No Caffeine use: No Place of Residence: Home Review of Systems 10-point ROS is otherwise unremarkable General: Fever, Sweats Eyes: Unremarkable ENT: Unremarkable Respiratory: Cough, Shortness of Breath, SOB with Excertion, As per HPI Cardiovascular: Chest Pain, Palpitations, Light Headedness, As per HPI Gastrointestinal: Nausea, As per HPI Genitourinary: Unremarkable Musculoskeletal: Shoulder Pain, As per HPI Integumentary: Unremarkable Neurological: Unremarkable Lymphatics: Unremarkable Physical Examination - Physical Exam General: Alert, In no apparent distress HEENT: Atraumatic, PERRLA, Mucous membr. moist/pink, EOMI, Sclerae nonicteric Neck: Supple, 2+ carotid pulse no bruit, No LAD, Without JVD or thyroid abnormality Respiratory: Clear to auscultation bilaterally, Normal air movement Cardiovascular: Regular rate/rhythm, Normal S1 S2 Gastrointestinal: Normal bowel sounds, No tenderness Musculoskeletal: Tenderness, Other (right arm in sling) Integumentary: No rashes Neurological: Normal speech, Normal strength at 5/5 x4 extr, Normal tone, Normal affect Lymphatics: No axilla or inguinal lymphadenopathy - Studies Laboratory Data (last 24 hrs) 04/02/21 22:50: PT 11.6, INR 1.01 04/02/21 22:50: WBC 8.10, Hgb 15.4, Hct 44.5, Plt Count 192 04/02/21 22:50: Sodium 136, Potassium 4.2, BUN 14, Creatinine 1.02, Glucose 126 H, Magnesium 2.2, Total Bilirubin 0.6, AST 11 L, ALT 24, Alkaline Phosphatase 57 Assessment and Plan - Problems (Diagnosis) (1) Postoperative pulmonary embolism Current Visit: Yes Status: Acute Qualifiers: Encounter type: initial encounter Qualified Code(s): T81.718A - Complication of other artery following a procedure, not elsewhere classified, initial encounter; I26.99 - Other pulmonary embolism without acute cor pulmonale (2) History of hypertension Current Visit: No Status: Chronic - Plan continue full dose lovenox continue hydralazine PRN for BP spikes pain management as needed reconcile and continue home medications Discharge Plan: Home Plan to discharge in: 24 Hours - Advance Directives Does patient have a Living Will: No Does patient have a Durable POA for Healthcare: No
[2021-04-03 02:34] VITALS: BMI 3905.5
[2021-04-03] MEDS ORDERED: HYDRALAZINE HCL 20 MG/ML VIAL IV PRN (02:34)
[2021-04-03] MEDS ORDERED: HYDROCODONE/APAP 10/325 TAB PO PRN (02:34)
[2021-04-03] MEDS ORDERED: ONDANSETRON 4 MG/2 ML VIAL IV PRN (02:34)
[2021-04-03] MEDS ORDERED: IBUPROFEN 400 MG TAB PO PRN (02:34)
[2021-04-03] MEDS ORDERED: ACETAMINOPHEN 500 MG TAB PO PRN (02:34)
[2021-04-03] MEDS: MORPHINE 2 MG/ML SYR IV PRN ×3 (04:56→16:28)
--- NOTE | 2021-04-03 08:33 | RAD REPORT ---
EXAM DESCRIPTION: US - Extremity Venous Uni Ltd - 04/03/2021 12:07 am CLINICAL HISTORY: PAIN Leg swelling and edema. COMPARISON: No comparisons FINDINGS: Right lower extremity venous system was interrogated with Doppler technique. Normal flow, compressibility and augmentation was noted. There is no DVT present. IMPRESSION: No evidence of right lower extremity deep venous thrombosis.
[2021-04-03] MEDS ORDERED: ENOXAPARIN 100 MG/ML SYR SQ SCH (09:00)
--- NOTE | 2021-04-03 17:01 | P.DS ---
Admission Date: 04/03/21 Discharge Date: 04/03/21 Disposition: ROUTINE DISCHARGE Discharge Condition: FAIR Reason for Admission: post op PE - Problems (1) H/O rotator cuff surgery Current Visit: Yes Status: Acute (2) Postoperative pulmonary embolism Current Visit: Yes Status: Acute Qualifiers: Encounter type: initial encounter Qualified Code(s): T81.718A - Complication of other artery following a procedure, not elsewhere classified, initial encounter; I26.99 - Other pulmonary embolism without acute cor pulmonale Brief History of Present Illness: 61 yo M with HTN and s/p right rotator cuff repair on 03/26 presented with 1 day of R sided chest pain radiating to the back and SOB. Chest pain described as pleuritic and affecting his ability to take deep breath and to do his incentive spirometer. He started physical therapy today as well, and had a lot of pain. He also reports ROSAS, palpitations, cough, fever, leg cramping, nausea, diaphoresis and dizziness. He called his surgeon who told him to go to the ED to rule out pulmonary embolism. CTPE revealed pulmonary embolism. Patient hospitalized for further management. Hospital Course: Patient placed on observation on the medical floor. Venous Doppler of lower extremities negative for DVT. He was treated with treated with full dose lovenox. Patient able to ambulate without difficulty here. He tolerated room air with good oxygen saturation both at rest and with ambulation. His PE appeared to be provoked by surgery. Patient will require up to 6 months of anticoagulation. He is discharged with Eliquis. Vital Signs/Physical Exam: Temp Pulse Resp BP Pulse Ox 98.7 F 84 17 146/91 H 95 04/03/21 12:00 04/03/21 12:00 04/03/21 16:28 04/03/21 12:00 04/03/21 12:00 General: Alert, In no apparent distress, Oriented x3 HEENT: Mucous membr. moist/pink Neck: JVD not distended Respiratory: Clear to auscultation bilaterally, Normal air movement Cardiovascular: No edema, Regular rate/rhythm, Normal S1 S2 Gastrointestinal: Soft and benign, Non-distended, No tenderness Musculoskeletal: No swelling Integumentary: No rashes Neurological: Normal strength at 5/5 x4 extr Laboratory Data at Discharge: WBC 8.10 K/uL (4.3-10.9) 04/02/21 22:50 Hgb 15.4 g/dL (13.6-17.9) 04/02/21 22:50 Hct 44.5 % (39.6-49.0) 04/02/21 22:50 Plt Count 192 K/uL (152-406) 04/02/21 22:50 PT 11.6 SECONDS (9.5-12.5) 04/02/21 22:50 INR 1.01 04/02/21 22:50 Sodium 136 mmol/L (136-145) 04/02/21 22:50 Potassium 4.2 mmol/L (3.5-5.1) 04/02/21 22:50 BUN 14 mg/dL (7-18) 04/02/21 22:50 Creatinine 1.02 mg/dL (0.55-1.3) 04/02/21 22:50 Glucose 126 mg/dL (74-106) H 04/02/21 22:50 Magnesium 2.2 mg/dL (1.8-2.4) 04/02/21 22:50 Total Bilirubin 0.6 mg/dL (0.2-1.0) 04/02/21 22:50 AST 11 U/L (15-37) L 04/02/21 22:50 ALT 24 U/L (12-78) 04/02/21 22:50 Alkaline Phosphatase 57 U/L (45-117) 04/02/21 22:50 Home Medications: Nebivolol HCl [Bystolic*] 5 mg PO DAILY 05/14/20 Apixaban [Eliquis] 10 mg PO BID #74 tab.ds.pk 04/03/21 Hydrocodone 5/APAP 325 [Asher 5/325] 1 tab PO Q6H PRN #20 tab 04/03/21 Ibuprofen 400 mg PO TID PRN #30 tablet 04/03/21 New Medications: Apixaban [Eliquis] 10 mg PO BID #74 tab.ds.pk Ibuprofen 400 mg PO TID PRN #30 tablet PRN Reason: PAIN Hydrocodone 5/APAP 325 [Asher 5/325] 1 tab PO Q6H PRN #20 tab PRN Reason: Pain Diet: AHA Activity: Ad maykel Followup: Cyndee Lowry MD [Primary Care Provider] - 1 Week
[2021-04-03 17:49] VITALS: BP 149/83; TEMP 98.6; O2SAT 98
--- NOTE | 2021-04-04 17:02 | EKG ---
Test Date: 2021-04-02 Test Time: 22:45:30 Retread Builder: BUCK MEASUREMENT RESULTS: Intervals: Rate: 65 HI: 148 QRSD: 82 QT: 390 QTc: 405 Saline: P: 26 HI: 148 QRS: -1 T: 6 INTERPRETIVE STATEMENTS: Normal sinus rhythm Normal ECG Compared to ECG 05/14/2020 12:57:08 Sinus bradycardia no longer present Myocardial infarct finding no longer present Electronically Signed On 04-04-21 17:00:07 LOCATION DIRECTOR by Lefty Salas
--- NOTE | 2021-04-05 12:13 | RAD REPORT ---
EXAM DESCRIPTION: ADDENDUM #1 THIS REPORT CONTAINS FINDINGS THAT MAY BE CRITICAL TO PATIENT CARE: The findings were verbally discus sed via telephone conference with Dr. Lucas by Dr. Frank Napier on 04/03/2021 12:39 AM CONGRESSIONAL AIDE .Th e results were acknowledged and understood. Electronically signed by: Frank Napier MD 04/03/2021 12:42 AM CONGRESSIONAL AIDE End of Addendum EXAM DESCRIPTION: CT Angiography Chest With Intravenous Contrast CLINICAL HISTORY: The patient is 61 years old and is Male; DYSPNEA TECHNIQUE: Axial computed tomographic angiography images of the chest with intravenous contrast. S agittal and coronal reformatted images were created and reviewed. This CT exam was performed using one or more of the following dose reduction techniques: automated exposure control, adjustment of t he mA and/or kV according to patient size, and/or use of iterative reconstruction technique. MIP re constructed images were created and reviewed. COMPARISON: No relevant prior studies available. FINDINGS: Limitations: Contrast bolus is suboptimal for detection of pulmonary embolism. Pulmonary arteries: Filling defect in one of the pulmonary arterial branches in the right lower l obe, image 76 series 401. Aorta: No acute findings. No thoracic aortic aneurysm. Lungs: Bibasilar dependent atelectasis. Pleural space: Unremarkable. No significant effusion. No pneumothorax. Heart: Unremarkable. No cardiomegaly. No significant pericardial effusion. No evidence of R V dysfunction. Bones/joints: No acute fracture. No dislocation. Soft tissues: Unremarkable. Lymph nodes: Unremarkable. No enlarged lymph nodes. IMPRESSION: Filling defect in one of the pulmonary arterial branches in the right lower lobe, image 76 series 401. Findings are suggestive of pulmonary embolism. Electronically signed by: Frank Napier MD 04/03/2021 12:34 AM CONGRESSIONAL AIDE Due to temporary technical issues with the PACS/Fluency reporting system, reports are being signed by the in house radiologists without review as a courtesy to insure prompt reporting. The interpreting radiologist is fully responsible for the content of the report.
== END 2021-04-03 18:12 | disposition home or self-care (01) ==
LOC: ER 21:11 → ERHOLD 04-03 01:08 → 2ND 04-03 02:16
PROVIDERS: ADMIT Internal Medicine; ATTEND Internal Medicine
DX: T81.718A Complication of other artery following a procedure, not elsewhere classified, initial encounter (principal); I26.99 Other pulmonary embolism without acute cor pulmonale; I10 Essential (primary) hypertension; Z20.822 Contact with and (suspected) exposure to COVID-19
CPT/HCPCS: 93005; 85025; 80048; 36415; 83735; 85610; 80076; 84484; 83880; 71275; 93971; 94760 ×2; 96375; 96372; 96374; 99285; U0003; Q9967; J1650; J2270 ×3; J1170; J2405; G0378 ×2

== ENCOUNTER 2021-04-18 20:33 | Inpatient (IN) | payer OTHER ==
--- OUTSIDE RECORDS SUMMARY | 2021-04-18 20:37 | XMS REPORT | Continuity of Care Document ---
:1960 Author Organization [facility] t Address [address] [place] [address] Care Team Providers Name Role Phone Gege VERGARA Attending Clinician Unavailable Pcp, Does Not Have A Attending Clinician Anene APPLICATION SECURITY DEVELOPER Attending Clinician Pob1, Care Clinic Attending Clinician Unavailable ANENE Attending Clinician Unavailable Payers Payer Name Policy Type Policy Number Effective Date Expiration Date S kim [employer] CHOICE POS [id number] 2018 00:00:00 II Problems Condition Condition Condition Status Onset Resolution Last Treating Co mments Source Name Details Category Date Date Treatment Clinician Date No known No known Disease Unive rs active active ity of problems problems [facility] Allergies, Adverse Reactions, Alerts Allergy Allergy Status Severity Reaction(s) Onset Inactive Treating Comm ents Source Name Type Date Date Clinician No Known DA Active U 2017-04 [facility] Allergie 1-16 [place] s 00:00: d [facility] No Known DA Active U 2004- [facility] Contrast - [place] Allergie 00:00: d [facility] No Known DA Active U 2004- [facility] Drug - [place] Allergie 00:00: d [facility] No Known DA Active U 2004-0 [facility] Food - [place] Allergie 00:00: d [facility] No Known DA Active U 2004-0 [facility] Other - [place] Allergie 00:00: d [facility] NO KNOWN Drug Active Univers ALLERGIE Class ity of S [facility] Social History Social Habit Start Date Stop Date Quantity Comments Source Sex Assigned At [facility] [place] [facility] Smoking Status Start Date Stop Date Source Never smoker [facility] Medications Ordered Filled Start Stop Current Ordering Indication Dosage Frequency Signature Comments Components Source Medication Medication Date Date Medication? Clinician (SIG) Name Name albuterol Yes [id number] 2{puff} Inhale 2 Univers (VENTOLIN 4-29 Puffs [...] tablet 15 Medical Branch albuterol 2020- No [id number] 2{puff} Inhale 2 Univers (VENTOLIN 4-07 05-08 Puffs ity of HFA) 90 00:00: 04:59 every 6 [place] mcg/actuati 00 :00 (six) Medical on inhaler hours as Branc h needed for Shortness of Breath or Chest tightness for up to 30 days. albuterol 2020- No [id number] 2{puff} Inhale 2 Univers (VENTOLIN 4-07 05-08 Puffs ity of HFA) 90 00:00: 04:59 every 6 [place] mcg/actuati 00 :00 (six) Medical on inhaler hours as Branc h needed for Shortness of Breath or Chest tightness for up to 30 days. acetaminoph 2019- 2020- No [id number] 650mg Take 1 Univers en (TYLENOL 4-07 04-29 tablet by it y of ARTHRITIS 00:00: 04:59 mouth [place] PAIN) 650 00 :00 every 8 Medical mg CR (eight) Branch tablet hours as needed for Pain for up to 21 days. acetaminoph 2020- No [id number] 650mg Take 1 Univers en (TYLENOL 07-23 tablet by it y of [place]TH[place]IS 00:00: 04:59 mouth [place] PAIN) 650 00 :00 every 8 Medical mg CR (eight) Branch tablet hours as needed for Pain for up to 21 days. albuterol 2020- No [id number] 2{puff} Inhale 2 Univers (VENTOLIN 07-23 Puffs ity of HFA) 90 00:00: 00:00 every 6 [place] mcg/actuati 00 :00 (six) Medical on inhaler hours as Branc h needed for Shortness of Breath or Chest tightness for up to 30 days. benzonatate 2020- No [id number] 100mg Take 1 Univers (TESSALON 07-23 capsule by [place]) 100 00:00: 04:59 mouth 3 [place] mg capsule 00 :00 (three) Medica l times Branch daily for 14 days. benzonatate 2020- No [id number] 100mg Take 1 Univers (TESSALON 07-23 capsule [...] 13:52:00 132 mm[Hg] Univer sity of pressure [facility] Diastolic blood 2019-07-24 13:52:00 89 mm[Hg] Unive rsity of pressure [facility] Heart rate 2019-07-24 13:48:00 69 /min Universi ty [facility] Body temperature 2019-07-24 13:48:00 36.89 Gaby [facility] Respiratory rate 2019-07-24 13:48:00 19 /min [facility] Body height 2019-07-24 13:48:00 182.9 cm Universi ty [facility] Body weight 2019-07-24 13:48:00 85.276 kg Universi ty [facility] BMI 2019-07-24 13:48:00 25.50 kg/m2 Universi ty [facility] Oxygen saturation in 2019-07-24 13:48:00 99 /min [facility] Arterial blood by [facility] Pulse oximetry Branch Procedures This patient has no known procedures. Encounters Start End Encounter Admission Attending Care Care Encounter Source Date/Time Date/Time Type Type Clinicians Facility Department ID 2020-07-28 2020-07-28 Outpatient Smooth VERGARA [facility] [id number] Univers 13:10:00 13:10:00 WHITNEY ity [facility] 2020-07-07 2020-07-07 [facility] [id number] Univers 13:10:00 13:10:00 WHITNEY ity [facility] 2019-08-15 2019-08-15 Refill Pcp, [facility] [id number] Univers 00:00:00 00:00:00 Patient Yair [id number] i ty of Does Not [place] [id number] [place] as Have A Professio [phone] [place] [address] Branch Building 2019-07-25 2019-07-25 Genie Patterson [facility] [id number] Univers 00:00:00 00:00:00 [facility] [id number] it y of [place] [id number] [place] as Professio [phone] [address] 2019-07-24 2019-07-24 Urgent Pob1, Acute Care Clinic [facility] [id number] Univers 08:15:25 08:35:25 Care [facility] [id number] ity of [place] [id number] [place] as Profjerichoio [phone] [address] Office [address] 2019-07-24 2019-07-24 Outpatient R RAMAKRISHNA [facility] [id number] Univers 08:20:00 08:20:00 CARMELA tan of [facility] Results This patient has no known results.
[2021-04-19] MEDS ORDERED: ACETAMINOPHEN 500 MG TAB ONE (02:12)
[2021-04-19 02:26] LABS: Absolute Lymphocytes (CBC) 2.4 K/uL (0.7-4.9); Hematocrit 47.8 % (39.6-49.0); MPV 7.8 fL (7.6-11.3); RBC Red Blood Cell Count 4.79 M/uL (4.33-5.43)
[2021-04-19 02:27] LABS: Protime INR 1.08
[2021-04-19 02:39] LABS: ALT/SGPT 22 U/L (12-78); AST/SGOT 11 U/L (15-37); Albumin 3.9 g/dL (3.4-5.0); Alkaline Phosphatase 67 U/L (45-117); BUN Blood Urea Nitrogen 18 mg/dL (7-18); Bicarbonate 26 mmol/L (21-32); Bilirubin Direct < 0.1 mg/dL (0-0.2); Bilirubin Total 0.3 mg/dL (0.2-1.0); Glucose Level 103 mg/dL (74-106); Magnesium 2.3 mg/dL (1.8-2.4); NT PRO-BNP 66 pg/mL (<125); Potassium 4.1 mmol/L (3.5-5.1); Protein, Total 7.9 g/dL (6.4-8.2); Sodium Level 138 mmol/L (136-145); Troponin (Emerg Dept Use Only) < 0.02 ng/mL (0.0-0.045)
[2021-04-19 03:52] LABS: Urine Blood Negative (Negative); Urine Glucose Negative (Negative); Urine Protein Negative (Negative); Urine pH 5.5 (5.0-7.0)
--- NOTE | 2021-04-19 04:57 | ER ---
Nurse's Notes [facility] Name: Maxim Brown Age: 61 yrs Sex: Male : 1960 Arrival Date: 04/18/2021 Time: 20:34 Bed 23 Private MD: Diagnosis: Syncope Presentation: 04/18 22:27 Chief complaint: Spouse and/or significant other states: pt had syncopal episode approx bb 1999 last night he grabbed the towel bar in the bathroom and it came off the wall and he was aware as soon as he hit the floor. Pt has abrasion to left knee feels like there is "a crick" in his neck. Coronavirus screen: At this time, the client does not indicate any symptoms associated with coronavirus-19. Ebola Screen: No symptoms or risks identified at this time. Initial Sepsis Screen: Does the patient meet any 2 criteria? No. Patient's initial sepsis screen is negative. Does the patient have a suspected source of infection? No. Patient's initial sepsis screen is negative. Risk Assessment: Do you want to hurt yourself or someone else? Patient reports no desire to harm self or others. Onset of symptoms was April 18, 2021. 22:27 Method Of Arrival: Ambulatory bb 22:27 Acuity: CASTILLO 3 bb Triage Assessment: 22:32 General: Appears uncomfortable, Behavior is calm, cooperative. Pain: Complains of pain bb in chest and neck. Neuro: Level of Consciousness is awake, alert, obeys commands, Oriented to person, place, time, situation. Cardiovascular: Capillary refill < 3 seconds Patient's skin is warm and dry. Respiratory: Respiratory effort is even, unlabored. GI: No signs and/or symptoms were reported involving the gastrointestinal system. Derm: Skin is pink, warm \\T\\ dry. Musculoskeletal: splint to right arm in place. Historical: - Allergies: 22:32 No Known Allergies; bb - Home Meds: 22:32 Bystolic 5 mg Oral tab once daily for Hypertension [Active]; Eliquis oral [Active]; bb - PMHx: 22:32 Hypertension; Pulmonary embolisim; bb - PSHx: 22:32 Rotator Cuff-Right and Left; bb - Immunization history:: Client reports receiving the 2nd dose of the Covid vaccine, Stem. - Social history:: Smoking status: Patient denies any tobacco usage or history of. Screenin/02 06:06 Abuse screen: Denies threats or abuse. Denies injuries from another. Nutritional kd3 screening: No deficits noted. Tuberculosis screening: No symptoms or risk factors identified. Fall Risk IV access (20 points). Assessment: 01:30 Reassessment: No changes from previously documented assessment. Patient and/or family bb updated on plan of care and expected duration. Pain level reassessed. Patient is alert, oriented x 3, equal unlabored respirations, skin warm/dry/pink. 06:06 Reassessment: Patient and/or family updated on plan of care and expected duration. Pain kd3 level reassessed. Patient is alert, oriented x 3, equal unlabored respirations, skin warm/dry/pink. Vital Signs: 04/18 22:27 BP 133 / 94; Pulse 84; Resp 16 S; Temp 98(O); Pulse Ox 97% on R/A; Weight 86.18 kg (R); bb Height 6 ft. 0 in. (182.88 cm) (R); Pain 5/10; 04/19 03:44 BP 114 / 79; Pulse 72; Resp 16; Temp 98.1; Pulse Ox 100% ; lt3 06:25 BP 138 / 84; Pulse 72; Resp 16; Pulse Ox 100% on R/A; kd3 04/18 22:27 Body Mass Index 25.77 (86.18 kg, 182.88 cm) bb ED Course: 04/18 20:34 Patient arrived in ED. kc5 22:32 Triage completed. bb 22:32 Arm band placed on Patient placed in waiting room, Patient notified of wait time. bb 04/19 01:26 Patricio Walls MD is Attending Physician. 7 02:10 Initial lab(s) drawn, by ga, sent to lab. Inserted saline lock: 22 gauge in left lt3 antecubital area, using aseptic technique. 02:19 Melissa Herrera, STEPHANIE is Primary Nurse. bb 02:20 EKG done, by ED staff, reviewed by Patricio Walls MD. lt3 03:03 XRAY Chest (1 view) In Process Unspecified. EDMS 03:03 Knee Left 3 View XRAY In Process Unspecified. EDMS 03:07 CT Head C Spine In Process Unspecified. EDMS 03:07 CT Chest For PE Angio In Process Unspecified. EDMS 03:53 Urine collected: clean catch specimen. lt3 04:56 Zuleyma Orozco MD is Hospitalizing Provider. [facility] 06:06 Patient has correct armband on for positive identification. Bed in low position. Call kd3 light in reach. Side rails up X2. 06:11 COVID-19 SARS RT PCR (Document "Date of Onset" if Symptomatic) Sent. kd3 Administered Medications: 02:15 Drug: Tylenol 1000 mg Route: PO; bb 06:06 Drug: morphine 2 mg Route: IVP; Site: left antecubital; kd3 06:06 Drug: Eliquis (apixaban) 5 mg Route: PO; kd3 Outcome: 04:57 Decision to Hospitalize by Provider. [facility] 09:02 Patient left the ED. eb Signatures: Dispatcher [employer] EDMelissa Stewart RN RN bb Kyra Hunt Patricio Walls MD MD [facility] Jeannine Sandoval RN RN 3 Radhika Sadler [facility] Marcella Ching 3
--- NOTE | 2021-04-19 04:58 | EDPHYS ---
Physician Documentation [facility] Name: Maxim Brown Age: 61 yrs Sex: Male : 1960 Arrival Date: 04/18/2021 Time: 20:34 Bed 23 Private MD: ED Physician Patricio Walls HPI: 04/19 01:57 This 61 yrs old Male presents to ER via Ambulatory with complaints of Fall Injury, mh7 Syncope. 01:57 The patient has experienced syncope, collapsed. Onset: The symptoms/episode mh7 began/occurred last night, at 20:00. Duration: This was a single episode, that lasted an unknown period of time. Context: the episode(s) was witnessed, by family, , occurred at home, occurred while the patient was standing, Just prior to the episode the patient experienced dizziness, lightheadedness. Associated injury: Head/face: Head, pain, Neck: Neck, pain, Left lower extremity: left knee, abrasion. Associated signs and symptoms: Pertinent negatives: abdominal pain, agitation, ataxia, blurred vision, chest pain, combativeness, confusion, diaphoresis, diarrhea, nausea, numbness, palpitations, seizure, shortness of breath, tingling, vertigo, vomiting, weakness. Current symptoms: Currently, the patient is not experiencing any symptoms. Historical: - Allergies: 04/18 22:32 No Known Allergies; bb - Home Meds: 22:32 Bystolic 5 mg Oral tab once daily for Hypertension [Active]; Eliquis oral [Active]; bb - PMHx: 22:32 Hypertension; Pulmonary embolisim; bb - PSHx: 22:32 Rotator Cuff-Right and Left; bb - Immunization history:: Client reports receiving the 2nd dose of the Covid vaccine, FREECULTR. - Social history:: Smoking status: Patient denies any tobacco usage or history of. ROS: 04/19 01:57 Constitutional: Negative for fever, chills, and weight loss, Eyes: Negative for injury, mh7 pain, redness, and discharge, ENT: Negative for injury, pain, and discharge, Respiratory: Negative for shortness of breath, cough, wheezing, and pleuritic chest pain, Abdomen/GI: Negative for abdominal pain, nausea, vomiting, diarrhea, and constipation, Back: Negative for injury and pain, : Negative for injury, bleeding, discharge, and swelling, Neuro: Negative for headache, weakness, numbness, tingling, and seizure, Psych: Negative for depression, anxiety, suicide ideation, homicidal ideation, and hallucinations, Allergy/Immunology: Negative for hives, rash, and allergies, Endocrine: Negative for neck swelling, polydipsia, polyuria, polyphagia, and marked weight changes, Hematologic/Lymphatic: Negative for swollen nodes, abnormal bleeding, and unusual bruising. Exam: 01:57 Constitutional: This is a well developed, well nourished patient who is awake, alert, mh7 and in no acute distress. Head/Face: Normocephalic, atraumatic. Eyes: Pupils equal round and reactive to light, extra-ocular motions intact. Lids and lashes normal. Conjunctiva and sclera are non-icteric and not injected. Cornea within normal limits. Periorbital areas with no swelling, redness, or edema. ENT: Nares patent. No nasal discharge, no septal abnormalities noted. Tympanic membranes are normal and external auditory canals are clear. Oropharynx with no redness, swelling, or masses, exudates, or evidence of obstruction, uvula midline. Mucous membranes moist. 01:57 Cardiovascular: Regular rate and rhythm with a normal S1 and S2. No gallops, murmurs, or rubs. Normal PMI, no JVD. No pulse deficits. Respiratory: Lungs have equal breath sounds bilaterally, clear to auscultation and percussion. No rales, rhonchi or wheezes noted. No increased work of breathing, no retractions or nasal flaring. Abdomen/GI: Soft, non-tender, with normal bowel sounds. No distension or tympany. No guarding or rebound. No evidence of tenderness throughout. Back: No spinal tenderness. No costovertebral tenderness. Full range of motion. 01:57 Neuro: Awake and alert, GCS 15, oriented to person, place, time, and situation. Cranial nerves II-XII grossly intact. Motor strength 5/5 in all extremities. Sensory grossly intact. Cerebellar exam normal. Normal gait. Psych: Awake, alert, with orientation to person, place and time. Behavior, mood, and affect are within normal limits. 01:57 Neck: External neck: tenderness, that is mild, of the right mid cervical area and right trapezius, C-spine: vertebral tenderness, is not appreciated, ROM/movement: pain, with rotation to the left, with rotation to the right, limited range of motion, is not appreciated, Meningeal signs: are not present, nuchal rigidity, is not appreciated, Lymph nodes: no appreciated lymphadenopathy. 01:57 Chest/axilla: Inspection: normal, Palpation: tenderness, that is moderate, of the right lateral anterior chest, that totally reproduces the patient's complaints, Lymph nodes: lymphadenopathy is not appreciated. 01:57 Musculoskeletal/extremity: Extremities: noted in the left knee: abrasion, tenderness, Mild, ROM: intact in all extremities, Circulation is intact in all extremities. Sensation intact. Compartment Syndrome exam of affected extremity: is normal. no numbness, no tingling, no sensation deficit, no palor, no weak pulses, Joints: the left knee displays tenderness, Mild, Weight bearing: able to fully bear weight, without difficulty, Tendon exam: specific tendon testing normal through active and passive range of motion DVT Exam: no pain, no swelling, no tenderness, negative Homans' sign noted on exam, no appreciated bluish discoloration, no erythema, no increased warmth, Calves: are non-tender, have equal circumference. 01:57 Skin: injury, abrasion(s), very small abrasion noted, of the left knee. Vital Signs: 04/18 22:27 BP 133 / 94; Pulse 84; Resp 16 S; Temp 98(O); Pulse Ox 97% on R/A; Weight 86.18 kg (R); bb Height 6 ft. 0 in. (182.88 cm) (R); Pain 5/10; 04/19 03:44 BP 114 / 79; Pulse 72; Resp 16; Temp 98.1; Pulse Ox 100% ; lt3 06:25 BP 138 / 84; Pulse 72; Resp 16; Pulse Ox 100% on R/A; kd3 04/18 22:27 Body Mass Index 25.77 (86.18 kg, 182.88 cm) bb MDM: 04:49 Differential Diagnosis: aortic aneurysm, cardiac arrhythmia, cerebrovascular accident, [facility] drug effect, emotional response, idiopathic syncope, pseudo seizure, seizure, transient ischemic attack, vasovagal episode. 04:55 Data reviewed: vital signs, nurses notes, old medical records, lab test result(s), [facility] cardiac enzymes, CBC, electrolytes, urinalysis, EKG, radiologic studies, CT scan, plain films. Data interpreted: Pulse oximetry: on room air is 100 %. Interpretation: normal. Counseling: I had a detailed discussion with the patient and/or guardian regarding: the historical points, exam findings, and any diagnostic results supporting the discharge/admit diagnosis, lab results, radiology results, the need for further work-up and treatment in the hospital. Response to treatment: the patient's symptoms have markedly improved after treatment. 04:57 Patient medically screened. [facility] 04/19 01:53 Order name: Basic Metabolic Panel [facility] 04/19 01:53 Order name: CBC with Diff; Complete Time: 02:40 [facility] 04/19 01:53 Order name: LFT's; Complete Time: 02:40 [facility] 04/19 01:53 Order name: Magnesium; Complete Time: 02:40 [facility] 04/19 01:53 Order name: NT PRO-BNP; Complete Time: 02:40 [facility] 04/19 01:53 Order name: PT-INR; Complete Time: 02:40 [facility] 04/19 01:53 Order name: Troponin (emerg Dept Use Only); Complete Time: 02:40 [facility] 04/19 01:53 Order name: XRAY Chest (1 view) [facility] 04/19 01:53 Order name: Knee Left 3 View XRAY [facility] 04/19 01:53 Order name: Basic Metabolic Panel; Complete Time: 02:40 [facility] 04/19 03:52 Order name: Urine Dipstick-Ancillary; Complete Time: 04:42 [facility] 04/19 03:53 Order name: CREATININE WHOLE BLOOD; Complete Time: 04:42 [facility] 04/19 05:05 Order name: COVID-19 SARS RT PCR (Document "Date of Onset" if Symptomatic) [facility] 04/19 07:01 Order name: SARS-COV-2 RT PCR [facility] 04/19 01:53 Order name: EKG; Complete Time: 01:54 [facility] 04/19 01:53 Order name: EKG - Nurse/Tech; Complete Time: 02:21 [facility] 04/19 01:53 Order name: IV Saline Lock; Complete Time: 02:11 [facility] 04/19 01:53 Order name: Labs collected and sent; Complete Time: 02:11 [facility] 04/19 01:53 Order name: O2 Per Protocol; Complete Time: 03:32 7 04/19 01:53 Order name: O2 Sat Monitoring; Complete Time: 03:32 7 04/19 01:55 Order name: CT Head C Spine [facility] 04/19 01:55 Order name: CT Chest For PE Angio [facility] 04/19 01:55 Order name: Urine Dipstick-Ancillary (obtain specimen); Complete Time: 03:53 [facility] 04/19 04:59 Order name: CONS Physician Consult EDMS Administered Medications: 02:15 Drug: Tylenol 1000 mg Route: PO; bb 06:06 Drug: morphine 2 mg Route: IVP; Site: left antecubital; kd3 06:06 Drug: Eliquis (apixaban) 5 mg Route: PO; kd3 Disposition Summary: 04/19/21 04:57 Hospitalization Ordered Hospitalization Status: Observation [facility] Provider: Zlueyma Orozco Condition: Stable [facility] Problem: new [facility] Symptoms: have improved [facility] Bed/Room Type: Standard [facility] Location: Telemetry/MedSurg (observation)(04/19/21 08:31) eb Room Assignment: 210(04/19/21 08:31) eb Diagnosis - Syncope [facility] Forms: - Medication Reconciliation Form [facility] - SBAR form [facility] Signatures: Dispatcher [employer] EDDania Mcclain RN RN mw Ballard, Brenda RN Kyra Conway Maurice, MD MD 7 Deshaun Christine PA PA ej Doucette, Kyli RN RN kd3 Corrections: (The following items were deleted from the chart) 05:07 04:57 Telemetry/MedSurg (observation) [facility] mw 05:07 04:57 [facility] mw 08:31 05:07 [facility] ER HOLD mw eb 08:31 05:07 ERHOLD- mw eb
--- NOTE | 2021-04-19 05:28 | P.HP ---
Certification for Inpatient Patient admitted to: Inpatient With expected LOS: <2 Midnights Patient will require the following post-hospital care: None Practitioner: I am a practitioner with admitting privileges, knowledge of patient current condition, hospital course, and medical plan of care. Services: Services provided to patient in accordance with Admission requirements found in Title 42 Section 412.3 of the Code of Federal Regulations <Deshaun Christine - Last Filed: 04/19/21 05:28> Patient History Date of Service: 04/19/21 Reason for admission: syncope History of Present Illness: Mr. Brown is a 61 yo M and recent history of pulmonary embolism presents after syncopal episode. He got out of the bathtub and was drying off when he felt lightheaded and dizzy. He slumped against the wall, and pulled the towel rack off the wall. says she caught him and he was still coherent after the fall, but didn't know what happened. His last syncopal episode was in April, also happened while getting out of the bathtub. He followed with cardiology, and ECHO, stress test, Holter monitoring was normal at that time. They decreased his BP medicine then. He had a recent rotator cuff surgery. He has been doing physical therapy. He has been continuing to have pain and trouble sleeping. - Past Medical/Surgical History -: Hypertension -: history of PE after shoulder surgery -: syncopal episodes -: r rotator cuff -: l rotator cuff -: carpal tunnel repair -: trigger thumb repair -: tonsillectomy - Family History Father -: Heart disease Notes: after sudden cardiac arrest at 71yo, history of syncopal episodes - Social History Smoking Status: Never smoker Alcohol use: No CD- Drugs: No Caffeine use: No Place of Residence: Home <Sharita Christinekeli Felton - Last Filed: 04/19/21 05:28> Date of Service: 04/19/21 <Zuleyma Orozco - Last Filed: 04/19/21 23:04> Allergies No Known Allergies Allergy (Unverified 07/24/15 19:11) Home Medications: Nebivolol HCl [Bystolic*] 5 mg PO DAILY 05/14/20 Apixaban [Eliquis] 10 mg PO BID #74 tab.ds.pk 04/03/21 Hydrocodone 5/APAP 325 [[place] 5/325] 1 tab PO Q6H PRN #20 tab 04/03/21 Ibuprofen 400 mg PO TID PRN #30 tablet 04/03/21 Review of Systems 10-point ROS is otherwise unremarkable General: Malaise Musculoskeletal: Shoulder Pain <Deshaun Christine - Last Filed: 04/19/21 05:28> Physical Examination - Physical Exam General: Alert, In no apparent distress HEENT: Atraumatic, PERRLA, Mucous membr. moist/pink, EOMI, Sclerae nonicteric Neck: Supple, 2+ carotid pulse no bruit, No LAD, Without JVD or thyroid abnormality Respiratory: Clear to auscultation bilaterally, Normal air movement Cardiovascular: Regular rate/rhythm, Normal S1 S2 Gastrointestinal: Normal bowel sounds, No tenderness Musculoskeletal: No tenderness, Other (shoulder in sling ) Integumentary: No rashes Neurological: Normal speech, Normal strength at 5/5 x4 extr, Normal tone, Normal affect Lymphatics: No axilla or inguinal lymphadenopathy - Studies Laboratory Data (last 24 hrs) 04/19/21 02:05: PT 12.4, INR 1.08 04/19/21 02:05: WBC 8.90, Hgb 16.5, Hct 47.8, Plt Count 284 04/19/21 02:05: Sodium 138, Potassium 4.1, BUN 18, Creatinine 1.23, Glucose 103, Magnesium 2.3, Total Bilirubin 0.3, AST 11 L, ALT 22, Alkaline Phosphatase 67 <Deshaun Christine - Last Filed: 04/19/21 05:28> - Studies Laboratory Data (last 24 hrs) 04/19/21 02:05: PT 12.4, INR 1.08 04/19/21 02:05: WBC 8.90, Hgb 16.5, Hct 47.8, Plt Count 284 04/19/21 02:05: Sodium 138, Potassium 4.1, BUN 18, Creatinine 1.23, Glucose 103, Magnesium 2.3, Total Bilirubin 0.3, AST 11 L, ALT 22, Alkaline Phosphatase 67 <Zuleyma Orozco - Last Filed: 04/19/21 23:04> Assessment and Plan - Problems (Diagnosis) (1) H/O rotator cuff surgery Current Visit: No Status: Chronic (2) Postoperative pulmonary embolism Current Visit: No Status: Resolved Qualifiers: Encounter type: sequela Qualified Code(s): I26.99 - Other pulmonary embolism without acute cor pulmonale; T81.718S - Complication of other artery following a procedure, not elsewhere classified, sequela (3) Syncope and collapse Current Visit: No Status: Acute (4) History of hypertension Current Visit: No Status: Chronic - Plan cardiology consulted on tele, repeat EKG, trend troponin repeat orthostatic VS, continue IV fluids continue pain medications continue eliquis Discharge Plan: Home Plan to discharge in: 24 Hours - Advance Directives Does patient have a Living Will: No Does patient have a Durable POA for Healthcare: No - Code Status/Comfort Care Code Status Assessed: Yes (full code ) Critical Care: No Time Spent Managing Pts Care (In Minutes): 70 <Deshaun Christine - Last Filed: 04/19/21 05:28> Date of Service: 04/19/21 Subjective: Agree with HPI as mentioned above Physical Examination: Vitals: Afebrile vital signs are stable Physical exam: Cardiovascular: Within normal limits. Lungs: Within normal limits Abdomen: Within normal limits Neuro: Awake, alert, oriented to person place and time Assessment: 1. Syncope 2. Status post right shoulder surgery 3. Family history of cardiac arrest Plan: 1. Continue with current plan of care as mentioned above; cardiology recommending to be reassessed in a.m. Possible discharge if no further workup. <Zuleyma Orozco - Last Filed: 04/19/21 23:04>
[2021-04-19] MEDS ORDERED: MORPHINE 2 MG/ML SYR ONE (06:03)
[2021-04-19] MEDS ORDERED: APIXABAN 5 MG TABLET ONE (06:03)
--- NOTE | 2021-04-19 07:33 | RAD REPORT ---
EXAM DESCRIPTION: RAD - Chest Single View - 04/19/2021 3:03 am CLINICAL HISTORY: Syncope COMPARISON: No comparisons FINDINGS: Lines: None. Lungs: No evidence of edema or pneumonia. Pleural: No significant pleural effusions or pneumothorax. Cardiac: The heart size is within normal limits. Bones: No acute fractures. Other: IMPRESSION: No acute cardiopulmonary disease.
--- NOTE | 2021-04-19 07:34 | RAD REPORT ---
EXAM DESCRIPTION: RAD - Knee Left 3 View - 04/19/2021 3:03 am CLINICAL HISTORY: Trauma COMPARISON: No comparisons FINDINGS: No acute fracture. No malalignment. No significant focal degenerative changes. IMPRESSION: No acute osseous abnormality involving the left knee.
[2021-04-19] MEDS ORDERED: ACETAMINOPHEN 500 MG TAB PO PRN (09:36)
[2021-04-19] MEDS ORDERED: NA CHLORIDE 0.9% 1,000 ML IV SCH (09:36)
[2021-04-19] MEDS ORDERED: ONDANSETRON 4 MG/2 ML VIAL IV PRN (09:36)
[2021-04-19] MEDS ORDERED: TRAZODONE 50 MG TABLET PO PRN (09:36)
[2021-04-19 10:44] LABS: Troponin I < 0.02 ng/mL (0.0-0.045)
[2021-04-19] MEDS: MORPHINE 2 MG/ML SYR IV PRN ×2 (11:29→17:42)
[2021-04-19] MEDS: HYDROCODONE/APAP 7.5/325 MG TAB PO PRN ×3 (13:13→21:45)
[2021-04-19 13:32] VITALS: BMI 3710.2
--- NOTE | 2021-04-19 18:14 | RAD REPORT ---
EXAM DESCRIPTION: CT - Head C Spine Mpr Wo Con - 04/19/2021 6:59 am CLINICAL HISTORY: The patient is 61 years old and is Male; Trauma, Syncope TECHNIQUE: Axial computed tomography images of the head/brain and cervical spine without intravenous contrast. Sagittal and coronal reformatted images were created and reviewed. This CT exam was pe rformed using one or more of the following dose reduction techniques: automated exposure control, a djustment of the mA and/or kV according to patient size, and/or use of iterative reconstruction techn ique. COMPARISON: CT of the head May 14, 2020 FINDINGS: BRAIN: Unremarkable. No hemorrhage. No significant white matter disease. No edema. VENTRICLES: Unremarkable. No ventriculomegaly. SKULL: No acute fracture. SINUSES: Unremarkable as visualized. No acute sinusitis. MASTOID AIR CELLS: Unremarkable as visualized. No mastoid effusion. VERTEBRAE: Straightening of the normal cervical curvature is present. The vertebral body height s and alignment are maintained. DISCS/SPINAL CANAL/NEURAL FORAMINA: There is multi-level intervertebral disc height loss. There a re disc-osteophyte complexes at several levels, with associated mild spinal canal narrowing. There is also facet hypertrophy and uncovertebral joint osteophytosis, with associated multilevel neural fora kathryn narrowing. SOFT TISSUES: The soft tissues are normal. LUNG APICES: Unremarkable as visualized. IMPRESSION: 1. No acute intracranial findings. 2. Straightening of the normal cervical curvature is present. Findings may be secondary to patien t position versus muscle spasm. Electronically signed by: Vanesa Lucero MD 04/19/2021 4:24 AM BOX PRINTER Due to temporary technical issues with the PACS/Fluency reporting system, reports are being signed by the in house radiologists without review as a courtesy to insure prompt reporting. The interpreting radiologist is fully responsible for the content of the report.
--- NOTE | 2021-04-19 18:40 | RAD REPORT ---
EXAM DESCRIPTION: CT - Chest For Pe Angio - 04/19/2021 6:58 am CLINICAL HISTORY: The patient is 61 years old and is Male; syncope;Pain TECHNIQUE: Axial computed tomographic angiography images of the chest with intravenous contrast. S agittal and coronal reformatted images were created and reviewed. This CT exam was performed using one or more of the following dose reduction techniques: automated exposure control, adjustment of t he mA and/or kV according to patient size, and/or use of iterative reconstruction technique. MIP reconstructed images were created and reviewed. COMPARISON: CTA of the chest April 02, 2021. FINDINGS: PULMONARY ARTERIES: There are no obvious filling defects identified within the pulmonary arteries to suggest pulmonary embolism. Previously suggested filling defect within the right lower l obe is no longer seen. AORTA: No acute findings. No thoracic aortic aneurysm. LUNGS: The lungs are hyperinflated. Minimal bibasilar atelectasis is present. The tracheobronchia l tree is widely patent. No mass. PLEURAL SPACE: Unremarkable. No significant effusion. No pneumothorax. HEART: Unremarkable. No cardiomegaly. No significant pericardial effusion. No evidence of R V dysfunction. BONES/JOINTS: Multilevel degenerative change of the spine is present. No acute fracture. No d islocation. SOFT TISSUES: Unremarkable. LYMPH NODES: Unremarkable. No enlarged lymph nodes. IMPRESSION: 1. No evidence of pulmonary embolism. 2. Minimal bibasilar atelectasis. Electronically signed by: Vanesa Lucero MD 04/19/2021 4:32 AM BLAST FURNACE KEEPER HELPER Due to temporary technical issues with the PACS/Fluency reporting system, reports are being signed by the in house radiologists without review as a courtesy to insure prompt reporting. The interpreting radiologist is fully responsible for the content of the report.
--- NOTE | 2021-04-19 20:24 | CON ---
Date of Consultation: 04/19/2021 Reason For Consultation: Syncopal episode. History Of Present Illness: 61-year-old male with history of hypertension, recently diagnosed pulmon anila embolism, for which he was on Eliquis, as in the past, trying to get off became lighth eaded and dizzy and he is slumping against the wall and passed out briefly. Denies having any chest pain. He apparently had similar episode back in April and it was told that his heart rate slowed d own. The patient is on Bystolic for hypertension. He had recent rotator cuff surgery and postsurgic al course was complicated with pulmonary embolism, for which he has been on proper anticoagulants. D enies having any other complaints. Past Medical History: Hypertension and PE. Medications: Refer reconciliation sheet for detailed list. Allergies: NO KNOWN DRUG ALLERGIES. Family History: There is no premature coronary artery disease or cancer. Social History: Does not smoke or drink. Does not use any drugs. Review of Systems: All systems reviewed and they were negative except as mentioned in the HPI. Physical Examination: Vital Signs: Temperature is 97.8, pulse 77, breathing at 18, blood pressure 120/81, saturating 96% o n room air. General: Pleasant middle-aged male, in no distress. Head and Neck: Pupils are equal, reactive to light. Intact eye movements. No JVD. No cervical lym phadenopathy. Neck: Supple. Thyroid is not enlarged. Lungs: Clear to auscultation bilaterally. No rhonchi, rales, or crackles. No accessory muscle use. Heart: Regular rate and rhythm. No extra sounds. Abdomen: Soft and nontender. Bowel sounds positive. No organomegaly. No masses or hernia. No rig idity or rebound. Extremities: No edema, clubbing, or cyanosis. Intact pulses. Skin: No rash was noted. Neurologic: Alert, awake, and oriented x3. No acute focal deficits appreciated. Investigations: Hemoglobin is 16.5, white blood cell count is 8.9, BUN 18, creatinine 1.23. Troponi ns x3 were negative. Assessment And Recommendations: Syncopal episode. Etiology is not clear. I could not find an EKG f rom the admission. We will obtain an electrocardiogram and monitor on telemetry for any cardiac paus es or bradycardia or cardiac arrhythmia. He follows with Dr. Salas in the office. We will evaluat e his recent records including the stress test and the echo and to determine further planning. Also, I recommend to stop the Bystolic for the future and replace that with other antihypertensive agents, something like either Norvasc or lisinopril. There is a chance that Bystolic is causing some signif icant bradycardia that could cause syncope occasionally. Again, we will monitor further on telemetry and obtain EKG and further plan accordingly. /MARIAM Voice ID: [id number] Report ID: [id number]
[2021-04-19] MEDS: APIXABAN 5 MG TABLET PO SCH (20:31)
[2021-04-19 22:43] VITALS: O2SAT 93
[2021-04-19] MEDS ORDERED: TEMAZEPAM 15 MG CAP PO PRN (23:02)
[2021-04-20] MEDS: HYDROCODONE/APAP 7.5/325 MG TAB PO PRN ×3 (01:17→09:46)
[2021-04-20 05:07] LABS: Hematocrit 41.9 % (39.6-49.0); Lymphocytes % 31.2 % (15.3-44.8); MPV 7.9 fL (7.6-11.3); RBC Red Blood Cell Count 4.25 M/uL (4.33-5.43)
[2021-04-20 05:18] LABS: Albumin 3.1 g/dL (3.4-5.0); Bilirubin Total 0.5 mg/dL (0.2-1.0); Magnesium 2.1 mg/dL (1.8-2.4); Phosphorus 2.8 mg/dL (2.5-4.9); Potassium 4.3 mmol/L (3.5-5.1); Protein, Total 6.3 g/dL (6.4-8.2)
[2021-04-20 06:10] LABS: Folic Acid, (Folate) 8.6 ng/mL (3.1-17.5)
[2021-04-20] MEDS: APIXABAN 5 MG TABLET PO SCH (08:36)
[2021-04-20] MEDS ORDERED: HYDROCODONE/APAP 5/325 MG TAB PO PRN ×2 (09:37→10:00)
--- NOTE | 2021-04-20 09:41 | P.DS ---
Admission Date: 04/19/21 Discharge Date: 04/20/21 Primary Care Provider: Dr. Lowry; Cardiology-Dr. Salas Disposition: ROUTINE DISCHARGE Discharge Condition: GOOD Reason for Admission: syncope Consultations: Cardiology-Dr. Salas Procedures: COVID: Negative CXR: COMPARISON: No comparisons FINDINGS: Lines: None. Lungs: No evidence of edema or pneumonia. Pleural: No significant pleural effusions or pneumothorax. Cardiac: The heart size is within normal limits. Bones: No acute fractures. IMPRESSION: No acute cardiopulmonary disease. CT Head: FINDINGS: BRAIN: Unremarkable. No hemorrhage. No significant white matter disease. No edema. VENTRICLES: Unremarkable. No ventriculomegaly. SKULL: No acute fracture. SINUSES: Unremarkable as visualized. No acute sinusitis. MASTOID AIR CELLS: Unremarkable as visualized. No mastoid effusion. VERTEBRAE: Straightening of the normal cervical curvature is present. The vertebral body heights and alignment are maintained. DISCS/SPINAL CANAL/NEURAL FORAMINA: There is multi-level intervertebral disc height loss. There are disc-osteophyte complexes at several levels, with associated mild spinal canal narrowing. There is also facet hypertrophy and uncovertebral joint osteophytosis, with associated multilevel neural foraminal narrowing. SOFT TISSUES: The soft tissues are normal. LUNG APICES: Unremarkable as visualized. IMPRESSION: 1. No acute intracranial findings. 2. Straightening of the normal cervical curvature is present. Findings may be secondary to patient position versus muscle spasm. CT chest: COMPARISON: CTA of the chest April 02, 2021. FINDINGS: PULMONARY ARTERIES: There are no obvious filling defects identified within the pulmonary arteries to suggest pulmonary embolism. Previously suggested filling defect within the right lower lobe is no longer seen. AORTA: No acute findings. No thoracic aortic aneurysm. LUNGS: The lungs are hyperinflated. Minimal bibasilar atelectasis is present. The tracheobronchial tree is widely patent. No mass. PLEURAL SPACE: Unremarkable. No significant effusion. No pneumothorax. HEART: Unremarkable. No cardiomegaly. No significant pericardial effusion. No evidence of RV dysfunction. BONES/JOINTS: Multilevel degenerative change of the spine is present. No acute fracture. No dislocation. SOFT TISSUES: Unremarkable. LYMPH NODES: Unremarkable. No enlarged lymph nodes. IMPRESSION: 1. No evidence of pulmonary embolism. 2. Minimal bibasilar atelectasis. Medical Problem List: Syncope History of rotator cuff injury status post repair History of postoperative pulmonary embolism on chronic anticoagulation therapy Hypertension Insomnia Brief History of Present Illness: 61-year-old male with history of hypertension and recent right shoulder surgery. Patient reports after surgery patient found to have pulmonary embolism. Patient on medication at this time. Patient presented with syncopal episode. Patient reports of similar episode in the past. He followed up with cardiology in the past. Patient had extensive work-up at that time. Patient was monitored overnight. Hospital Course: Patient presented with syncope. Patient over the past month has had rotator cuff repair. Postoperatively patient developed pulmonary embolism. Currently on anticoagulation therapy. Patient presented with syncopal episode. Etiology unclear. CT head unremarkable. CT chest shows no further pulmonary embolism. Patient seen and evaluated by cardiology. Cardiology suspects that syncope may be related to bradycardia. Cardiology recommends to discontinue Bystolic as this may be causing the syncope. Patient has had previous cardiac work-up in the past. No further intervention required. At discharge recommend to discontinue Bystolic. Recommend follow-up with PCP in 1 week to follow-up hospitalization. Also recommend follow-up with cardiology in 1 week to further monitor. Patient with history of hypertension. Blood pressures have been stable without medication at this time. Cardiology suspects diastolic may be causing some bradycardia leading to syncope. Cardiology recommends to discontinue Bystolic at discharge. Recommend to monitor blood pressure closely. If blood pressure remains above 140/90 then alternative medication like lisinopril or Norvasc can be started. This can be further addressed by his PCP or cardiology. Patient with recent postoperative pulmonary embolism. Patient may continue with Eliquis 5 mg 1 pill twice daily. Patient will likely require treatment for 3 months. Recommend follow-up with pulmonology as an outpatient to further address and monitor. Patient with recent rotator cuff repair. Continue with orthopedics recommendations and follow-up. Patient will continue with physical therapy. Patient with insomnia. This is likely related to his recent rotator cuff repair. The patient will be given a limited supply of temazepam 15 mg to be used as night as needed for insomnia. Vital Signs/Physical Exam: Temp Pulse Resp BP Pulse Ox 97.6 F 64 19 121/64 94 04/20/21 04:00 04/20/21 04:00 04/20/21 05:32 04/20/21 04:00 04/20/21 05:32 General: Alert, In no apparent distress, Oriented x3, Cooperative HEENT: Atraumatic Neck: Supple Respiratory: Clear to auscultation bilaterally, Normal air movement Cardiovascular: Normal pulses, Regular rate/rhythm Gastrointestinal: Normal bowel sounds, No tenderness, No masses, No rebound, No guarding Musculoskeletal: No erythema, No tenderness, No warmth, Other (Right shoulder currently in brace) Neurological: Normal speech, Normal strength at 5/5 x4 extr, Normal tone, Normal affect Laboratory Data at Discharge: WBC 6.30 K/uL (4.3-10.9) D 04/20/21 04:32 Hgb 14.3 g/dL (13.6-17.9) 04/20/21 04:32 Hct 41.9 % (39.6-49.0) 04/20/21 04:32 Plt Count 229 K/uL (152-406) 04/20/21 04:32 PT 12.4 SECONDS (9.5-12.5) 04/19/21 02:05 INR 1.08 04/19/21 02:05 Sodium 138 mmol/L (136-145) 04/20/21 04:32 Potassium 4.3 mmol/L (3.5-5.1) 04/20/21 04:32 BUN 15 mg/dL (7-18) 04/20/21 04:32 Creatinine 1.04 mg/dL (0.55-1.3) 04/20/21 04:32 Glucose 113 mg/dL (74-106) H 04/20/21 04:32 Phosphorus 2.8 mg/dL (2.5-4.9) 04/20/21 04:32 Magnesium 2.1 mg/dL (1.8-2.4) 04/20/21 04:32 Total Bilirubin 0.5 mg/dL (0.2-1.0) 04/20/21 04:32 AST 10 U/L (15-37) L 04/20/21 04:32 ALT 17 U/L (12-78) 04/20/21 04:32 Alkaline Phosphatase 54 U/L (45-117) 04/20/21 04:32 Troponin I < 0.02 ng/mL (0.0-0.045) 04/19/21 13:34 Triglycerides 146 mg/dL (<150) 04/20/21 04:32 Cholesterol 170 mg/dL (<200) 04/20/21 04:32 HDL Cholesterol 54 mg/dL (40-60) 04/20/21 04:32 Cholesterol/HDL Ratio 3.15 04/20/21 04:32 Home Medications: Apixaban [Eliquis] 10 mg PO BID #74 tab.ds.pk 04/03/21 Hydrocodone 5/APAP 325 [[place] 5/325*] 1 tab PO Q6H PRN #20 tab 04/03/21 Temazepam [Restoril*] 15 mg PO BEDTIME PRN PRN #10 cap 04/19/21 New Medications: Temazepam [Restoril*] 15 mg PO BEDTIME PRN PRN #10 cap PRN Reason: Insomnia Physician Discharge Instructions: Patient presented with syncope. Patient over the past month has had rotator cuff repair. Postoperatively patient developed pulmonary embolism. Currently on anticoagulation therapy. Patient presented with syncopal episode. Etiology unclear. CT head unremarkable. CT chest shows no further pulmonary embolism. Patient seen and evaluated by cardiology. Cardiology suspects that syncope may be related to bradycardia. Cardiology recommends to discontinue Bystolic as this may be causing the syncope. Patient has had previous cardiac work-up in the past. No further intervention required. At discharge recommend to discontinue Bystolic. Recommend follow-up with PCP in 1 week to follow-up hospitalization. Also recommend follow-up with cardiology in 1 week to further monitor. Patient with history of hypertension. Blood pressures have been stable without medication at this time. Cardiology suspects diastolic may be causing some bradycardia leading to syncope. Cardiology recommends to discontinue Bystolic at discharge. Recommend to monitor blood pressure closely. If blood pressure remains above 140/90 then alternative medication like lisinopril or Norvasc can be started. This can be further addressed by his PCP or cardiology. Patient with recent postoperative pulmonary embolism. Patient may continue with Eliquis 5 mg 1 pill twice daily. Patient will likely require treatment for 3-6 months. Recommend follow-up with pulmonology as an outpatient to further address and monitor. Patient also to see hematology later this week to further address. Patient with recent rotator cuff repair. Continue with orthopedic recommendations. Follow-up with orthopedics as directed. Patient with insomnia. Patient will be given a limited supply of temazepam 15 mg at bedtime for insomnia. OK TO DC IV AND DC HOME FOLLOW-UP WITH PRIMARY CARE PROVIDER IN 1-2 WEEKS FOLLOW-UP WITH CARDIOLOGY IN 1-2 WEEKS RETURN TO THE ER IF symptoms worsen CALL or TEXT DR. DE LOS SANTOS AT [phone] IF ANY QUESTIONS REGARDING HOSPITAL STAY. PLEASE CALL THE FLOOR AT [phone] IF ANY MEDICATION OR NURSING QUESTIONS. Diet: AHA Activity: Fall precautions Followup: Shawna Lowry [Primary Care Provider] - Time spent managing pt's care (in minutes): 55
[2021-04-20 12:43] VITALS: BP 119/80; TEMP 98
[2021-04-20] MEDS ORDERED: HOME MED 1 EA UNK (Apixaban [Eliquis] 5 MG Tab.Ds.Pk) PO SCH (21:00)
--- NOTE | 2021-04-20 22:30 | PN ---
Date of Progress Note: 04/20/2021 Mr. Brown was admitted on 04/19/[address] Jimenez' service for syncope. It was thought that this s yncope may have been secondary to bradycardia or orthostatic hypotension. The patient has had a pulm onary embolus recently after a rotator cuff surgery and is on Eliquis. His syncope still related to a possible orthostatic hypotension versus bradycardia. He is asymptomatic today. I am comfortable w ith him going home without any Bystolic and without any losartan, which have been discontinued in the past. I will make sure he has an outpatient event monitor in the near future and see me in the offi ce. I am comfortable with him going home whenever it is okay with Dr. Jimenez. The case was discusse d with Dr. Jimenez. MONTSERRAT/MARIAM Voice ID: [id number] Report ID: [id number]
[2021-04-21] MEDS ORDERED: NEBIVOLOL HCL 5 MG TAB PO SCH (09:00)
== END 2021-04-20 12:15 | disposition home or self-care (01) | DRG 312 ==
LOC: ER 20:33 → ERHOLD 04-19 05:01 → OBSVTOIN 04-19 05:30 → ERHOLD 04-19 06:41 → 2ND 04-19 08:55
PROVIDERS: ADMIT Hospitalist; ATTEND Family Medicine
DX: R55 Syncope and collapse (principal); R00.1 Bradycardia, unspecified; G47.00 Insomnia, unspecified; I10 Essential (primary) hypertension; T44.7X5A Adverse effect of beta-adrenoreceptor antagonists, initial encounter; Y93.E1 Activity, personal bathing and showering; Y92.091 Bathroom in other non-institutional residence as the place of occurrence of the external cause; W18.2XXA Fall in (into) shower or empty bathtub, initial encounter; Z79.01 Long term (current) use of anticoagulants; Z86.711 Personal history of pulmonary embolism; Z79.899 Other long term (current) drug therapy; Z20.822 Contact with and (suspected) exposure to COVID-19
CPT/HCPCS: 36415; 70450; 71045; 71275; 72125; 80048; 80053; 80061; 80076; 81003; 82565; 82607; 82746; 83540; 83735; 83880; 84100; 84439; 84443; 84484; 85025; 85610; 93005; 94760; 96374; 99284; G0378; J2270; J7030; Q9967; U0003

== ENCOUNTER 2023-05-16 00:09 | Inpatient (IN) | payer OTHER ==
[2023-05-16] MEDS ORDERED: ONDANSETRON 4 MG/2 ML VIAL ONE ×2 (00:47→05:23)
[2023-05-16] MEDS ORDERED: MAGNESIUM SULFATE 1 gm IVPB 1 GM/100 ML BAG IV ONE (00:48)
[2023-05-16] MEDS ORDERED: MORPHINE 4 MG/ML SYR ONE (00:48)
[2023-05-16 01:12] LABS: Urine Bilirubin NEGATIVE (Negative); Urine Blood Negative (Negative); Urine Clarity Clear (Clear); Urine Color Light-Yellow (Yellow); Urine Glucose NEGATIVE (Negative); Urine Protein NEGATIVE (Negative); Urine Urobilinogen Normal (Normal); Urine pH 5.5 (5.0-7.0)
[2023-05-16 01:15] LABS: Absolute Lymphocytes (CBC) 2.1 K/uL (0.7-4.9); Hematocrit 47.9 % (39.6-49.0); Lymphocytes % 19.7 % (15.3-44.8); MCV 97.8 fL (80-100); Platelets 193 thou/uL (152-406)
[2023-05-16 01:36] LABS: Albumin 3.9 g/dL (3.4-5.0); Bilirubin Total 0.6 mg/dL (0.2-1.0); Potassium 3.9 mEq/L (3.5-5.1)
[2023-05-16] MEDS ORDERED: HYDROMORPHONE HCL 1 MG/ML INJ ONE (02:04)
[2023-05-16] MEDS ORDERED: METRONIDAZOLE 500mg IVPB 500 MG/100 ML BAG IV ONE ×2 (02:04→07:56)
--- NOTE | 2023-05-16 02:07 | ER ---
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 complaints of nausea, diarrhea, urinary frequency and urgency. Coronavirus screen: Client denies travel out of the [place] in the last 14 days. At this time, the client does not indicate any symptoms associated with coronavirus-19. Ebola Screen: No symptoms or risks identified at this time. Initial Sepsis Screen: Does the patient meet any 2 criteria? No. Patient's initial sepsis screen is negative. Does the patient have a suspected source of infection? No. Patient's initial sepsis screen is negative. Risk Assessment: Do you want to hurt yourself or someone else? Patient reports no desire to harm self or others. Onset of symptoms was May 16, 2023. 00:29 Method Of Arrival: Wheelchair lg3 00:29 Acuity: CASTILLO 3 lg3 Triage Assessment: 00:34 General: Appears in no apparent distress. uncomfortable, Behavior is calm, cooperative. lg3 Pain: Complains of pain in suprapubic area Pain currently is 10 out of 10 on a pain scale. EENT: No deficits noted. No signs and/or symptoms were reported regarding the EENT system. Neuro: No deficits noted. Castañeda Agitation-Sedation Scale (RASS): 0 - Alert and Calm Level of Consciousness is awake, alert, obeys commands, Oriented to person, place, time, situation. Cardiovascular: No deficits noted. Denies chest pain, shortness of breath, Capillary refill < 3 seconds Clubbing of nail beds is absent JVD is absent Patient's skin is warm and dry. Respiratory: No deficits noted. Airway is patent Respiratory effort is even, unlabored, Respiratory pattern is regular, symmetrical. GI: Abdomen is round non-distended, obese, Reports lower abdominal pain, diarrhea, nausea. : Reports inability to void, pain urgency, urinary frequency. Derm: No deficits noted. No signs and/or symptoms reported regarding the dermatologic system. Skin is intact, is healthy with good turgor, Skin is dry, Skin is normal, Skin temperature is warm. Musculoskeletal: No deficits noted. No signs and/or symptoms reported regarding the musculoskeletal system. Circulation, motion, and sensation intact. Range of motion: intact in all extremities. Historical: - Allergies: 00:34 No Known Allergies; lg3 - Home Meds: 00:34 Bystolic 5 mg Oral tab once daily for Hypertension [Active]; Eliquis Oral [Active]; lg3 - PMHx: 00:34 Hypertension; pulmonary embolisim; lg3 - PSHx: 00:34 Rotator Cuff-Right and Left; loop recorder implant (Rotator Cuff-Right and Left); lg3 - Immunization history:: Adult Immunizations up to date, Client reports receiving the 2nd dose of the Covid vaccine, Flu vaccine is up to date. - Social history:: Smoking status: Patient denies any tobacco usage or history of. Patient uses alcohol, admits to "couple of beers" a day. Patient/guardian denies using street drugs. - Family history:: not pertinent. - Hospitalizations: : No recent hospitalization is reported. Screenin:05 [facility] ED Fall Risk Assessment (Adult) History of falling in the last 3 months, nw1 including since admission No falls in past 3 months (0 pts) Confusion or Disorientation No (0 pts) Intoxicated or Sedated No (0 pts) Impaired Gait No (0 pts) Mobility Assist Device Used No (0 pt) Altered Elimination No (0 pt) Score/Fall Risk Level 0 - 2 = Low Risk Oriented to surroundings, Maintained a safe environment, Assessed \\T\\ reinforced patient's understanding of fall precautions, Provided non-skid footwear, Hourly rounding (assess needs \\T\\ fall precautionary measures) done. Abuse screen: Denies threats or abuse. Denies injuries from another. Nutritional screening: No deficits noted. Tuberculosis screening: No symptoms or risk factors identified. Assessment: 01:05 General: Appears uncomfortable, well groomed, well developed, well nourished, Behavior nw1 is calm, cooperative. 01:05 Pain: Complains of pain in suprapubic area Pain does not radiate. Pain currently is 10 nw1 out of 10 on a pain scale. Quality of pain is described as aching. Neuro: Level of Consciousness is awake, alert, obeys commands, Oriented to person, place, time, situation, Appropriate for age. Cardiovascular: Reports None Heart tones present. Respiratory: No deficits noted. GI: No deficits noted. No signs and/or symptoms were reported involving the gastrointestinal system. Bowel sounds present X 4 quads. Abdomen is tender to palpation in suprapubic area. EENT: No signs and/or symptoms were reported regarding the EENT system. Derm: No deficits noted. No signs and/or symptoms reported regarding the dermatologic system. Musculoskeletal: No deficits noted. No signs and/or symptoms reported regarding the musculoskeletal system. 03:15 Reassessment: Patient noted in bed with at bedside. States that he is feeling nw1 "much better" although patient also states that he still feels a "mild pain" in his belly. Vital Signs: 00:29 BP 153 / 103; Pulse 87; Resp 19 S; Temp 98.4(O); Pulse Ox 99% on R/A; Weight 88.45 kg; lg3 Height 6 ft. 0 in. (R); Pain 10/10; 01:09 BP 135 / 92; Pulse 66; Resp 16 S; Pulse Ox 98% on R/A; Pain 9/10; lg3 02:00 BP 130 / 100; Pulse 68; Resp 16 S; Pulse Ox 98% on R/A; Pain 10/10; lg3 00:29 Body Mass Index 26.45 (88.45 kg, 182.88 cm) lg3 00:29 Pain Scale: Adult lg3 01:09 Pain Scale: Adult lg3 02:00 Pain Scale: Adult lg3 [place] Coma Score: 01:05 Eye Response: spontaneous(4). Motor Response: obeys commands(6). Verbal Response: nw1 oriented(5). Total: 15. ED Course: 00:12 Patient arrived in ED. ag3 00:14 Bebeto Arredondo MD is Attending Physician. rn 00:34 Triage completed. lg3 00:34 Arm band placed on right wrist. lg3 01:05 Patient has correct armband on for positive identification. Placed in gown. Bed in low nw1 position. Call light in reach. Side rails up X2. Adult w/ patient. Provided Education on: POC. Client placed on continuous cardiac and pulse oximetry monitoring. NIBP monitoring applied. cardiac monitor on. Pulse ox on. NIBP on. Door closed. 01:05 CBC with Diff Sent. nw1 01:05 CMP Sent. nw1 01:05 Urinalysis w/ reflexes Sent. nw1 01:05 No provider procedures requiring assistance completed. Inserted saline lock: 20 gauge nw1 in left forearm, using aseptic technique. Blood collected. 01:[address] In Process Unspecified. EDMS 02:06 Malik Felix MD is Hospitalizing Provider. rn 03:05 Inserted saline lock: 18 gauge in left forearm, using aseptic technique. nw1 Administered Medications: 01:05 Drug: morphine IVP or IV 4 mg IVP once over 4 mins Route: IVP; Infused Over: 4 mins; nw1 Site: left forearm; 01:05 Drug: Ondansetron IVP 4 mg IVP once; over 2 minutes Route: IVP; Site: left forearm; nw1 01:05 Drug: Magnesium Sulfate IVPB 1 grams IVPB once over 1 hrs Route: IVPB; Infused Over: 1 nw1 hrs; Site: left forearm; 01:57 CANCELLED (Duplicate Order): morphineor iv 4 mg IVP once over 4 mins rn 02:12 Drug: HYDROmorphone IVP 1 mg IVP once Route: IVP; Site: left forearm; lg3 02:13 Drug: metroNIDAZOLE IVPB 500 mg 100 ml IVPB at 200 ml/hr once over 30 mins Volume: 100 lg3 ml; Route: IVPB; Rate: 200 ml/hr; Infused Over: 30 mins; Site: left forearm; 02:50 Drug: NS 0.9% IV 1000 ml IV at 1000 ml once Route: IV; Rate: 1000 ml; Site: left nw1 forearm; 02:50 Drug: NS 0.9% IV 1000 ml IV at 1000 ml once Route: IV; Rate: 1000 ml; Site: left nw1 forearm; 03:14 Drug: Ciprofloxacin IVPB 400 mg 200 ml IVPB once over 60 mins Volume: 200 ml; Route: nw1 IVPB; Infused Over: 60 mins; Site: left forearm; Medication: 01:05 VIS not applicable for this client. nw1 Outcome: 02:06 Decision to Hospitalize by Provider. rn 09:34 Admitted to Med/surg accompanied by tech, via wheelchair, kb3 09:34 Condition: stable 09:34 Patient left the ED. kb3 Signatures: Dispatcher [employer] EDMS Bebeto Arredondo MD MD rn Kathe Barba3 Sarah Dunn RN RN lg3 Gina Arora RN RN kb3 Karina Barger RN RN nw1 Corrections: (The following items were deleted from the chart) 03:21 03:16 General: Appears nw1 nw1
--- NOTE | 2023-05-16 02:07 | EDPHYS ---
Physician Documentation [facility] Name: Maxim Brown Age: 63 yrs Sex: Male : 1960 Arrival Date: 05/16/2023 Time: 00:09 Bed 16 Private MD: ED Physician Bebeto Arredondo HPI: 05/16 00:34 This 63 yrs old Male presents to ER via Wheelchair with complaints of Abdominal Pain. rn 00:34 The patient presents with abdominal pain in the lower abdomen. Onset: The rn symptoms/episode began/occurred 3 day(s) ago. The symptoms do not radiate. Associated signs and symptoms: Pertinent negatives: blood in stools, fever, hematuria, testicular pain. The symptoms are described as. Modifying factors: The symptoms are alleviated by nothing, the symptoms are aggravated by nothing. Severity of pain: At its worst the pain was moderate in the emergency department the pain is unchanged. The patient has not experienced similar symptoms in the past. The patient has not recently seen a physician. Patient reports lower abdominal pain that began 3 days ago. Now hurting worse in suprapubic region. Reports difficulty and pain with urination. Associated with nausea. No fever. No hematuria. No history of kidney stone or prostate problems in the past. No history of aneurysm. No trauma.. Historical: - Allergies: 00:34 No Known Allergies; lg3 - Home Meds: 00:34 Bystolic 5 mg Oral tab once daily for Hypertension [Active]; Eliquis Oral [Active]; lg3 - PMHx: 00:34 Hypertension; pulmonary embolisim; lg3 - PSHx: 00:34 Rotator Cuff-Right and Left; loop recorder implant (Rotator Cuff-Right and Left); lg3 - Immunization history:: Adult Immunizations up to date, Client reports receiving the 2nd dose of the Covid vaccine, Flu vaccine is up to date. - Social history:: Smoking status: Patient denies any tobacco usage or history of. Patient uses alcohol, admits to "couple of beers" a day. Patient/guardian denies using street drugs. - Family history:: not pertinent. - Hospitalizations: : No recent hospitalization is reported. ROS: 00:34 Constitutional: Negative for fever, chills, and weight loss, Cardiovascular: Negative rn for chest pain, palpitations, and edema, Respiratory: Negative for shortness of breath, cough, wheezing, and pleuritic chest pain, Abdomen/GI: Positive for suprapubic abdominal pain and nausea Back: Negative for injury and pain, : Positive for dysuria and decreased urination MS/Extremity: Negative for injury and deformity, Skin: No cyanosis Exam: 00:34 Constitutional: This is a well developed, well nourished patient who is awake, alert, rn appears uncomfortable Cardiovascular: Regular rate and rhythm. No pulse deficits. Respiratory: No increased work of breathing, no retractions or nasal flaring. Abdomen/GI: Soft, suprapubic tenderness, no rebound, no masses Skin: No cyanosis 03:25 ECG was reviewed by the Attending Physician. rn Vital Signs: 00:29 BP 153 / 103; Pulse 87; Resp 19 S; Temp 98.4(O); Pulse Ox 99% on R/A; Weight 88.45 kg; lg3 Height 6 ft. 0 in. (R); Pain 10/10; 01:09 BP 135 / 92; Pulse 66; Resp 16 S; Pulse Ox 98% on R/A; Pain 9/10; lg3 02:00 BP 130 / 100; Pulse 68; Resp 16 S; Pulse Ox 98% on R/A; Pain 10/10; lg3 00:29 Body Mass Index 26.45 (88.45 kg, 182.88 cm) lg3 00:29 Pain Scale: Adult lg3 01:09 Pain Scale: Adult lg3 02:00 Pain Scale: Adult lg3 [place] Coma Score: 01:05 Eye Response: spontaneous(4). Motor Response: obeys commands(6). Verbal Response: nw1 oriented(5). Total: 15. MDM: 00:14 Patient medically screened. rn 02:04 Differential diagnosis: bowel obstruction, diverticulitis, non-specific abd pain, rn Prostatitis, Ureterolithiasis, urinary tract infection. Data reviewed: vital signs, nurses notes, lab test result(s), radiologic studies, CT scan, and as a result, I will admit patient. Consideration of Admission/Observation Patient was admitted/placed on observation. Escalation of care including admission/observation considered. Management of patient was discussed with the following: Hospitalist: Will evaluate and admit patient. Counseling: I had a detailed discussion with the patient and/or guardian regarding the historical points, exam findings, and any diagnostic results supporting the discharge/admit diagnosis, lab results, radiology results, the need for further work-up and treatment in the hospital. Response to treatment: the patient's symptoms have mildly improved after treatment, and as a result, I will admit patient. ED course: Patient with acute diverticulitis on CT, per my interpretation a lot of the inflammatory changes are midline explaining suprapubic abdominal pain. Urine is negative and no evidence of kidney stone. Will admit for acute diverticulitis as patient is 3 days into illness and extremely uncomfortable, I do not feel like he will do well at home given his level of pain. Morphine helped a little, ordered Dilaudid.. 03:03 ED course: Patient had episode where he got lightheaded, became pale, dropped blood rn pressure. Was approximately 15 minutes after Dilaudid administration so possibly a cause. Started 2 L bolus on patient and laid supine with improvement of blood pressure. EKG obtained and sinus rhythm at 60 bpm. When I went into room initially heart rate was 45 and sinus. Blood pressure went down to 70 systolic, now 102/70 after fluid initiation. Patient with improvement of color and feels much better.. 03:24 ED course: Patient continues to improve with IV fluids, is now joking, blood pressure rn is above 120/70 now. 04:48 ED course: Patient was able to completely empty bladder, postvoid residual was 0 using rn bladder scanner.. 05/16 00:32 Order name: CBC with Diff; Complete Time: 01:44 rn 05/16 00:32 Order name: CMP; Complete Time: 01:44 rn 05/16 00:32 Order name: Urinalysis w/ reflexes; Complete Time: 01:19 rn 05/16 03:19 Order name: Urinalysis w/ reflexes EDMS 05/16 03:19 Order name: CBC with Automated Diff EDMS 05/16 03:19 Order name: CBC with Automated Diff EDMS 05/16 03:19 Order name: Comprehensive Metabolic Panel EDMS 05/16 03:20 Order name: Comprehensive Metabolic Panel EDMS 05/16 03:20 Order name: Magnesium EDMS 05/16 03:20 Order name: Magnesium EDMS 05/16 03:20 Order name: Phosphorus EDMS 05/16 03:20 Order name: Phosphorus EDMS 05/16 00:32 Order name: Stone Protocol CT rn 05/16 02:58 Order name: EKG; Complete Time: 02:59 rn 05/16 00:32 Order name: IV Saline Lock; Complete Time: 01:05 rn 05/16 00:32 Order name: Labs collected and sent; Complete Time: 01:05 rn 05/16 02:58 Order name: EKG - Nurse/Tech; Complete Time: 03:05 rn EC:25 Rate is 60 beats/min. Rhythm is regular. QRS [place] is Normal. SC interval is normal. QRS rn interval is normal. QT interval is normal. No Q waves. T waves are Normal. No ST changes noted. Clinical impression: Normal ECG. Interpreted by me. Reviewed by me. Administered Medications: 01:05 Drug: morphine IVP or IV 4 mg IVP once over 4 mins Route: IVP; Infused Over: 4 mins; nw1 Site: left forearm; 01:05 Drug: Ondansetron IVP 4 mg IVP once; over 2 minutes Route: IVP; Site: left forearm; nw1 01:05 Drug: Magnesium Sulfate IVPB 1 grams IVPB once over 1 hrs Route: IVPB; Infused Over: 1 nw1 hrs; Site: left forearm; 01:57 CANCELLED (Duplicate Order): morphineor iv 4 mg IVP once over 4 mins rn 02:12 Drug: HYDROmorphone IVP 1 mg IVP once Route: IVP; Site: left forearm; lg3 02:13 Drug: metroNIDAZOLE IVPB 500 mg 100 ml IVPB at 200 ml/hr once over 30 mins Volume: 100 lg3 ml; Route: IVPB; Rate: 200 ml/hr; Infused Over: 30 mins; Site: left forearm; 02:50 Drug: NS 0.9% IV 1000 ml IV at 1000 ml once Route: IV; Rate: 1000 ml; Site: left nw1 forearm; 02:50 Drug: NS 0.9% IV 1000 ml IV at 1000 ml once Route: IV; Rate: 1000 ml; Site: left nw1 forearm; 03:14 Drug: Ciprofloxacin IVPB 400 mg 200 ml IVPB once over 60 mins Volume: 200 ml; Route: nw1 IVPB; Infused Over: 60 mins; Site: left forearm; Disposition Summary: 05/16/23 02:06 Hospitalization Ordered Notes: Hospitalization Status: Inpatient Admission rn Provider: Malik Felix rn Condition: Stable rn Problem: new rn Symptoms: have improved rn Bed/Room Type: Standard rn Location: Telemetry/MedSurg (Inpatient)(05/16/23 07:46) bd Room Assignment: 225(05/16/23 07:46) bd Diagnosis - Diverticulitis of large intestine without perforation or abscess without bleeding rn - Intractable abdominal pain rn Forms: - Medication Reconciliation Form rn - SBAR form rn - Leadership Thank You Letter rn Signatures: Dispatcher [employer] EDMS Vivienne Brock bd Bebeto Arredondo MD MD rn Able, STEPHANIE Smith RN lg3 Karina Barger RN RN nw1 Josefina Yip pm6 Corrections: (The following items were deleted from the chart) 00:37 00:34 Constitutional: Negative for fever, chills, and weight loss, Cardiovascular: rn Negative for chest pain, palpitations, and edema, Respiratory: Negative for shortness of breath, cough, wheezing, and pleuritic chest pain, Abdomen/GI: Positive for suprapubic abdominal pain and nausea Back: Negative for injury and pain, : Positive for dysuria and decreased urination MS/Extremity: Negative for injury and deformity, rn 01:57 01:19 morphine IVP or IV 4 mg IVP once over 4 mins ordered. rn rn 02:38 02:06 Telemetry/MedSurg (Inpatient) rn pm6 02:38 02:06 rn pm6 07:46 02:38 [facility] ER HOLD pm6 bd 07:46 02:38 ERHOLD- pm6 bd
[2023-05-16] MEDS ORDERED: NA CHLORIDE 0.9% 2,000 ML ONE (02:46)
[2023-05-16] MEDS ORDERED: CIPROFLOXACIN 400mg IV 400 MG/200 ML BAG IV ONE (03:08)
[2023-05-16] MEDS ORDERED: ONDANSETRON 4 MG/2 ML VIAL IV PRN (03:15)
--- NOTE | 2023-05-16 03:30 | P.HP ---
Certification for Inpatient With expected LOS: >2 Midnights Practitioner: I am a practitioner with admitting privileges, knowledge of patient current condition, hospital course, and medical plan of care. Services: Services provided to patient in accordance with Admission requirements found in Title 42 Section 412.3 of the Code of Federal Regulations Patient History Date of Service: 05/16/23 Reason for admission: Acute diverticulitis History of Present Illness: 64-year-old male with a history of hypertension on pulmonary embolism on Eliquis presented to the ED with 3 days of intractable and sharp abdominal and suprapubic pain that had gradually continue to increase in intensity now associated with nausea, watery diarrhea, urinary frequency and urgency. Denies any bloody diarrhea, fever or vomiting. When he arrived to the ED he was mildly hypertensive at 153/103. Only abnormal lab finding was bicarb of 19. CT abdomen and pelvis revealed peridiverticular stranding involving the sigmoid colon consistent with diverticulitis. He was initially given 4 mg of IV morphine, Zofran and mag sulfate. He also received IV Cipro and Flagyl. However his pain was uncontrolled so he was given 2 mg of IV Dilaudid and shortly after that he became severely hypotensive 73/56 and was diaphoretic. He was given IV fluid bolus with improvement in BP to 103/76. Allergies No Known Allergies Allergy (Unverified 07/24/15 19:11) Home Medications: Hydrocodone 5/APAP 325 [[place] 5/325*] 1 tab PO Q6H PRN #20 tab 04/03/21 Temazepam [Restoril*] 15 mg PO BEDTIME PRN PRN #10 cap 04/19/21 Apixaban [Eliquis] 5 mg PO BID #60 tab.ds.pk 04/20/21 - Past Medical/Surgical History -: Hypertension -: history of PE after shoulder surgery -: syncopal episodes -: r rotator cuff -: l rotator cuff -: carpal tunnel repair -: trigger thumb repair -: tonsillectomy - Family History Father -: Heart disease Notes: after sudden cardiac arrest at 71yo, history of syncopal episodes - Social History Alcohol use: No CD- Drugs: No Caffeine use: No Physical Examination - Vital Signs Temperature: 98.4 F Blood Pressure: 103/76 Pulse: 87 Respirations: 19 Pulse Ox (%): 99 - Physical Exam General: Alert, In no apparent distress HEENT: Atraumatic, Normocephalic Neck: Supple, JVD not distended, No Thyromegaly Respiratory: Clear to auscultation bilaterally, Normal air movement Cardiovascular: No edema, Regular rate/rhythm, Normal S1 S2 Gastrointestinal: Normal bowel sounds, Non-distended, No masses, No rebound, No guarding, Tenderness Musculoskeletal: No swelling, No erythema, No tenderness, No warmth Integumentary: No rashes, No significant lesion, No tenderness/swelling Neurological: Normal speech, Normal strength at 5/5 x4 extr, Normal tone - Studies Laboratory Data (last 24 hrs) 05/16/23 05/16/23 00:59 00:59 WBC 10.70 Hgb 16.8 Hct 47.9 Plt Count 193 Sodium 137 Potassium 3.9 BUN 15 Creatinine 1.10 Glucose 129 H Total Bilirubin 0.6 AST 23 ALT 58 Alkaline Phosphatase 55 Assessment and Plan - Plan Acute sigmoid diverticulitis Hypertension with transient hypotension s/p IV Dilaudid Pulmonary embolism on Eliquis Plan IV antibiotics ceftriaxone and Flagyl Follow-up blood cultures NPO and advance diet as tolerated IV morphine PRN severe pain and Percocet for moderate pain Continue Eliquis IV fluid maintenance - Advance Directives Does patient have a Living Will: No Does patient have a Durable POA for Healthcare: No
[2023-05-16] MEDS: NA CHLORIDE 0.9% 1,000 ML IV SCH ×2 (04:00→15:09)
[2023-05-16 05:08] VITALS: BMI 26.4
[2023-05-16] MEDS ORDERED: HYDROCODONE/APAP 7.5/325 MG TAB ONE (05:22)
[2023-05-16] MEDS ORDERED: MORPHINE 2 MG/ML SYR ONE (05:22)
[2023-05-16] MEDS: MORPHINE 2 MG/ML SYR IV PRN ×3 (06:00→15:07)
[2023-05-16] MEDS: HYDROCODONE/APAP 7.5/325 MG TAB PO PRN ×3 (06:00→20:27)
[2023-05-16] MEDS ORDERED: NA CHLORIDE 0.9% 1,000 ML ONE (07:08)
[2023-05-16] MEDS ORDERED: CEFTRIAXONE 1000 MG/VIAL ONE (07:55)
[2023-05-16] MEDS ORDERED: NA CHLORIDE 0.9% 50 ML ONE (07:56)
[2023-05-16] MEDS ORDERED: APIXABAN 5 MG TABLET ONE (07:56)
[2023-05-16] MEDS: CEFTRIAXONE 1,000 MG in NA CHLORIDE 0.9% 50 ML IVPB SCH (08:00)
[2023-05-16] MEDS: METRONIDAZOLE 500mg IVPB 500 MG/100 ML BAG IV SCH ×2 (08:00→17:19)
[2023-05-16] MEDS ORDERED: INFLUENZA VACCINE (for 6+ mo) 0.5 ML DOSE IMVAC ONE (08:00)
[2023-05-16] MEDS: APIXABAN 5 MG TABLET PO SCH ×2 (08:00→20:27)
--- NOTE | 2023-05-16 12:48 | RAD REPORT ---
EXAM DESCRIPTION: CT - Stone Protocol - 05/16/2023 6:43 am CLINICAL HISTORY: The patient is 63 years old and is Male; suprapubic pain TECHNIQUE: Axial computed tomography images of the abdomen and pelvis without intravenous contrast. Sagittal and coronal reformatted images were created and reviewed. This CT exam was performed usi ng one or more of the following dose reduction techniques: automated exposure control, adjustment o f the mA and/or kV according to patient size, and/or use of iterative reconstruction technique. COMPARISON: No relevant prior studies available. FINDINGS: Lung bases: Unremarkable. No mass. No consolidation. ABDOMEN: Liver: Diffuse hepatic steatosis. Gallbladder and bile ducts: Unremarkable. No calcified stones. No ductal dilation. Pancreas: Unremarkable. No ductal dilation. Spleen: Unremarkable. No splenomegaly. Adrenals: Unremarkable. No mass. Kidneys and ureters: Unremarkable. No obstructing stones. No hydronephrosis. Stomach and bowel: Peridiverticular stranding involving the sigmoid colon consistent with diverti culitis. Scattered colonic diverticula. No obstruction. PELVIS: Appendix: The appendix is normal. Bladder: Unremarkable. Reproductive: Unremarkable as visualized. ABDOMEN and PELVIS: Intraperitoneal space: Unremarkable. No free air. No significant fluid collection. Bones/joints: No acute fracture. No dislocation. Soft tissues: Unremarkable. Vasculature: Unremarkable. No abdominal aortic aneurysm. Lymph nodes: Unremarkable. No enlarged lymph nodes. IMPRESSION: Peridiverticular stranding involving the sigmoid colon consistent with diverticulitis. Electronically signed by: Frank Napier MD 05/16/2023 01:35 AM DRAWBRIDGE TENDER Due to temporary technical issues with the PACS/Fluency reporting system, reports are being signed by the in house radiologist without review as a courtesy to ensure prompt reporting. The interpreting r adiologist is fully responsible for the content of the report.
--- NOTE | 2023-05-16 15:41 | P.PN ---
Subjective Date of Service: 05/16/23 Chief Complaint: Acute diverticulitis Pt is resting comfortably in bed. He complains of pain in lower abdomen. CT abd shows acute diverticulitis. Pt is getting iv rocephin and flagyl. No other complaints. Review of Systems Unremarkable General: Unremarkable Eyes: Unremarkable ENT: Unremarkable Respiratory: Unremarkable Cardiovascular: Unremarkable Gastrointestinal: Abdominal Pain Genitourinary: Unremarkable Musculoskeletal: Unremarkable Integumentary: Unremarkable Neurological: Unremarkable Lymphatics: Unremarkable Physical Examination - Vital Signs Temperature: 97.6 F Blood Pressure: 114/87 Pulse: 55 Respirations: 16 Pulse Ox (%): 100 - Physical Exam General: Alert, In no apparent distress, Oriented x3 HEENT: Atraumatic, Normocephalic, PERRLA Neck: Supple, 2+ carotid pulse no bruit Respiratory: Clear to auscultation bilaterally, Normal air movement Cardiovascular: No edema, Normal pulses, Regular rate/rhythm, Normal S1 S2 Capillary refill: <2 Seconds Gastrointestinal: Normal bowel sounds, Soft and benign, Non-distended, Tenderness Musculoskeletal: No clubbing, No swelling Integumentary: No rashes, No breakdown Neurological: Normal gait, Normal speech, Normal strength at 5/5 x4 extr, Normal tone Lymphatics: No axilla or inguinal lymphadenopathy - Studies Laboratory Data (last 24 hrs) 05/16/23 05/16/23 00:59 00:59 WBC 10.70 Hgb 16.8 Hct 47.9 Plt Count 193 Sodium 137 Potassium 3.9 BUN 15 Creatinine 1.10 Glucose 129 H Total Bilirubin 0.6 AST 23 ALT 58 Alkaline Phosphatase 55 Assessment And Plan - Plan Sepsis 2/2 Acute sigmoid diverticulitis: Will continue IVF, rocephin and flagyl. Follow up blood cx. Will check lactate. Pt is NPO. Hypertension with transient hypotension s/p IV Dilaudid: Will monitor BP and avoid dilaudid. Continue telemetry. Pulmonary embolism: Continue Eliquis DVT ppx: SCD Code: full
[2023-05-17] MEDS: METRONIDAZOLE 500mg IVPB 500 MG/100 ML BAG IV SCH ×3 (00:36→16:28)
[2023-05-17] MEDS: NA CHLORIDE 0.9% 1,000 ML IV SCH ×3 (00:36→21:33)
[2023-05-17] MEDS: HYDROCODONE/APAP 7.5/325 MG TAB PO PRN ×4 (02:11→21:33)
[2023-05-17] MEDS: MORPHINE 2 MG/ML SYR IV PRN (06:37)
[2023-05-17 06:42] LABS: Absolute Lymphocytes (CBC) 1.4 K/uL (0.7-4.9); Hematocrit 42.6 % (39.6-49.0); Lymphocytes % 18.3 % (15.3-44.8); MCV 100.2 fL (80-100); MPV 8.4 fL (7.6-11.3); Platelets 160 thou/uL (152-406); RBC Red Blood Cell Count 4.25 M/uL (4.33-5.43)
[2023-05-17 06:53] LABS: Albumin 3.3 g/dL (3.4-5.0); Bilirubin Total 0.7 mg/dL (0.2-1.0); Magnesium 2.3 mg/dL (1.6-2.4); Phosphorus 2.3 mg/dL (2.5-4.9); Potassium 3.9 mEq/L (3.5-5.1); Protein, Total 6.3 g/dL (6.4-8.2)
[2023-05-17] MEDS: CEFTRIAXONE 1,000 MG in NA CHLORIDE 0.9% 50 ML IVPB SCH (09:33)
[2023-05-17] MEDS: APIXABAN 5 MG TABLET PO SCH ×2 (09:36→21:33)
--- NOTE | 2023-05-17 11:27 | P.PN ---
Subjective Date of Service: 05/17/23 Chief Complaint: Acute diverticulitis Pt is resting comfortably in bed. He is feeling better today. Abd pain is improving. CT abd shows acute diverticulitis. Pt is getting iv rocephin and flagyl. No other complaints. Review of Systems Unremarkable General: Unremarkable Eyes: Unremarkable ENT: Unremarkable Respiratory: Unremarkable Cardiovascular: Unremarkable Gastrointestinal: Abdominal Pain Genitourinary: Unremarkable Musculoskeletal: Unremarkable Integumentary: Unremarkable Neurological: Unremarkable Lymphatics: Unremarkable Physical Examination - Vital Signs Temperature: 98.1 F Blood Pressure: 137/86 Pulse: 61 Respirations: 16 Pulse Ox (%): 97 - Physical Exam General: Alert, In no apparent distress, Oriented x3 HEENT: Atraumatic, Normocephalic, PERRLA Neck: Supple, 2+ carotid pulse no bruit Respiratory: Clear to auscultation bilaterally, Normal air movement Cardiovascular: No edema, Normal pulses, Regular rate/rhythm, Normal S1 S2 Capillary refill: <2 Seconds Gastrointestinal: Normal bowel sounds, Soft and benign, Non-distended, Tenderness Musculoskeletal: No clubbing, No swelling Integumentary: No rashes, No breakdown Neurological: Normal gait, Normal speech, Normal strength at 5/5 x4 extr, Normal tone, Sensation intact Lymphatics: No axilla or inguinal lymphadenopathy Assessment And Plan - Plan Sepsis 2/2 Acute sigmoid diverticulitis: Will continue IVF, rocephin and flagyl. Follow up blood cx. Lactate is 0.7. Pt is tolerating CLD. Will advance to full liquid diet. Hypertension with transient hypotension s/p IV Dilaudid: Will monitor BP and avoid dilaudid. Continue telemetry. Pulmonary embolism: Continue Eliquis DVT ppx: SCD Code: full
[2023-05-18 00:06] VITALS: O2SAT 96
[2023-05-18] MEDS: METRONIDAZOLE 500mg IVPB 500 MG/100 ML BAG IV SCH ×2 (00:33→08:25)
[2023-05-18] MEDS: HYDROCODONE/APAP 7.5/325 MG TAB PO PRN ×2 (04:24→10:47)
[2023-05-18] MEDS: NA CHLORIDE 0.9% 1,000 ML IV SCH (08:23)
[2023-05-18] MEDS: APIXABAN 5 MG TABLET PO SCH (08:27)
[2023-05-18 08:43] LABS: Absolute Lymphocytes (CBC) 1.4 K/uL (0.7-4.9); Hematocrit 42.1 % (39.6-49.0); Lymphocytes % 28.8 % (15.3-44.8); MCV 100.1 fL (80-100); MPV 8.2 fL (7.6-11.3); Platelets 158 thou/uL (152-406)
[2023-05-18] MEDS: CEFTRIAXONE 1,000 MG in NA CHLORIDE 0.9% 50 ML IVPB SCH (09:53)
[2023-05-18 10:11] LABS: Potassium 3.9 mEq/L (3.5-5.1)
--- NOTE | 2023-05-18 11:03 | P.PN ---
Subjective Date of Service: 05/18/23 Chief Complaint: Acute diverticulitis Pt is resting comfortably in bed. He is feeling better today. Pt is tolerating full liquid diet. Abd pain is improving. CT abd shows acute diverticulitis. Pt is getting iv rocephin and flagyl. No other complaints. Review of Systems Unremarkable General: Unremarkable Eyes: Unremarkable ENT: Unremarkable Respiratory: Unremarkable Cardiovascular: Unremarkable Gastrointestinal: Abdominal Pain Genitourinary: Unremarkable Musculoskeletal: Unremarkable Integumentary: Unremarkable Neurological: Unremarkable Lymphatics: Unremarkable Physical Examination - Vital Signs Temperature: 97.7 F Blood Pressure: 141/88 Pulse: 59 Respirations: 16 Pulse Ox (%): 97 - Physical Exam General: Alert, In no apparent distress, Oriented x3 HEENT: Atraumatic, Normocephalic Neck: Supple, 2+ carotid pulse no bruit Respiratory: Clear to auscultation bilaterally, Normal air movement Cardiovascular: No edema, Normal pulses, Regular rate/rhythm Capillary refill: <2 Seconds Gastrointestinal: Normal bowel sounds, Soft and benign, Tenderness Musculoskeletal: No clubbing, No swelling Integumentary: No rashes, No breakdown Neurological: Normal gait, Normal speech, Normal strength at 5/5 x4 extr, Normal tone, Sensation intact, Cranial nerves 3-12 intact Lymphatics: No axilla or inguinal lymphadenopathy Assessment And Plan - Plan Sepsis 2/2 Acute sigmoid diverticulitis: Will continue IVF, rocephin and flagyl. Follow up blood cx. Lactate is 0.7. Pt is tolerating CLD. Will advance to regular diet. Hypertension with transient hypotension s/p IV Dilaudid: Will monitor BP and avoid dilaudid. Continue telemetry. Pulmonary embolism: Continue Eliquis DVT ppx: SCD Code: full Dispo: pending hospital course
--- NOTE | 2023-05-18 14:54 | P.DS ---
Admission Date: 05/16/23 Discharge Date: 05/18/23 Disposition: ROUTINE DISCHARGE Discharge Condition: GOOD Reason for Admission: Acute diverticulitis Brief History of Present Illness: 64-year-old male with a history of hypertension on pulmonary embolism on Eliquis presented to the ED with 3 days of intractable and sharp abdominal and suprapubic pain that had gradually continue to increase in intensity now associated with nausea, watery diarrhea, urinary frequency and urgency. Denies any bloody diarrhea, fever or vomiting. When he arrived to the ED he was mildly hypertensive at 153/103. Only abnormal lab finding was bicarb of 19. CT abdomen and pelvis revealed peridiverticular stranding involving the sigmoid colon consistent with diverticulitis. He was initially given 4 mg of IV morphine, Zofran and mag sulfate. He also received IV Cipro and Flagyl. However his pain was uncontrolled so he was given 2 mg of IV Dilaudid and shortly after that he became severely hypotensive 73/56 and was diaphoretic. He was given IV fluid bolus with improvement in BP to 103/76. Hospital Course: Pt is a 64yo male with past medical history of hypertension and pulmonary embolism on Eliquis who presented with 3 days of intractable / sharp abdominal and suprapubic pain. The abd pain progressively worsened aned and became associated with nausea, watery diarrhea, urinary frequency and urgency. On admission, lab studies showed Bicarb of 19. CT abdomen and pelvis revealed peridiverticular stranding involving the sigmoid colon consistent with diverticulitis. He was initially given 4 mg of IV morphine, Zofran and mag sulfate. He also received IV Cipro and Flagyl. However, the abd pain was uncontrolled so he was given 2 mg of IV Dilaudid and shortly after that he became severely hypotensive 73/56 and was diaphoretic. His BP improved to 103/76 with IVF bolus. He was given IV fluid bolus. We admitted pt and continue iv rocephin and flagyl for acute diverticulitis. No growth on blood cx. Lactate was 0.7. The abdominal pain improved and pt tolerated solid food prior to discharge. We continued home med for PE. Pt will complete 1 week of cipro and flagyl at home. Pt was in NAD prior to discharge. Vital Signs/Physical Exam: Temp Pulse Resp BP Pulse Ox 97.8 F 61 16 127/81 96 05/18/23 12:00 05/18/23 12:00 05/18/23 12:00 05/18/23 12:00 05/18/23 12:00 Laboratory Data at Discharge: WBC 4.90 thou/uL (4.3-10.9) 05/18/23 08:16 Hgb 14.4 g/dL (13.6-17.9) 05/18/23 08:16 Hct 42.1 % (39.6-49.0) 05/18/23 08:16 Plt Count 158 thou/uL (152-406) 05/18/23 08:16 Sodium 139 mEq/L (136-145) 05/18/23 08:16 Potassium 3.9 mEq/L (3.5-5.1) 05/18/23 08:16 BUN 6 mg/dL (7-18) L 05/18/23 08:16 Creatinine 1.02 mg/dL (0.70-1.30) 05/18/23 08:16 Glucose 97 mg/dL (74-106) 05/18/23 08:16 Phosphorus 2.3 mg/dL (2.5-4.9) L 05/17/23 05:42 Magnesium 2.3 mg/dL (1.6-2.4) 05/17/23 05:42 Total Bilirubin 0.7 mg/dL (0.2-1.0) 05/17/23 05:42 AST 13 U/L (15-37) L 05/17/23 05:42 ALT 39 U/L (16-61) 05/17/23 05:42 Alkaline Phosphatase 50 U/L (45-117) 05/17/23 05:42 Home Medications: Ciprofloxacin HCl [Cipro 500 MG Tablet] 500 mg PO DAILY 7 Days #7 tab 05/18/23 metroNIDAZOLE [Flagyl] 500 mg PO Q8H 7 Days #21 tab 05/18/23 New Medications: Ciprofloxacin HCl [Cipro 500 MG Tablet] 500 mg PO DAILY 7 Days #7 tab metroNIDAZOLE [Flagyl] 500 mg PO Q8H 7 Days #21 tab Physician Discharge Instructions: Continue ad maykel activity. Take Cipro 500mgpo daily and flagyl 500mg po TID for 7 more days. Follow up with PCP within 1 week. You can resume work next tuesday. Diet: Regular Activity: Ad maykel Followup: Alma Le MD [Primary Care Provider] -
[2023-05-18 16:51] VITALS: BP 140/87; TEMP 98.3
--- NOTE | 2023-05-19 13:41 | EKG ---
Test Date: 2023-05-16 Test Time: 02:52:55 [employer]or: ABRIL Rebollar MEASUREMENT RESULTS: Intervals: Rate: 60 UT: 140 QRSD: 92 QT: 404 QTc: 404 Gurley: P: 59 UT: 140 QRS: 66 T: 31 INTERPRETIVE STATEMENTS: Normal sinus rhythm Normal ECG Compared to ECG 04/19/2021 02:20:08 No significant changes Electronically Signed On 05-19-23 13:26:41 [employer] by Keo Castelan
== END 2023-05-18 17:11 | disposition home or self-care (01) | DRG 872 ==
LOC: ER 00:09 → ERHOLD 03:14 → 2ND 08:51
PROVIDERS: ADMIT Internal Medicine; ATTEND Hospitalist
DX: A41.9 Sepsis, unspecified organism (principal); K57.32 Diverticulitis of large intestine without perforation or abscess without bleeding; I10 Essential (primary) hypertension; Z79.01 Long term (current) use of anticoagulants; Z86.711 Personal history of pulmonary embolism; Z79.899 Other long term (current) drug therapy
CPT/HCPCS: 36415; 74176; 76377; 80048; 80053; 81003; 83605; 83735; 84100; 85025; 93005; J0696; J0744; J1170; J2270; J2405; J3475; J7030